=== PATIENT | female | born 1960 | race Asian ===

== ENCOUNTER → 2018-07-07 | Outpatient (CLI) | payer MEDICARE ==
[~2018-07-07] MED LIST: ASPI81 PO; DIVA500T52 PO; DSS100 PO; INSNOV SQ; METF-960 PO; MV-M1TAB2 PO; OLAN5TAB40 PO; PIOG15TA6 PO; SIMV-260 PO; SITA100 PO; TRIH2TAB3 PO; VITAD1000 PO
[2018-07-18 08:46] LABS: CHOL/HDL RATIO 5.1 (3.9-5.7); HEMOGLOBIN A1C 9.3 % (4.5-6.2)
== END | disposition home or self-care (01) ==
LOC: LABMN 15:00
PROVIDERS: ATTEND Psychiatry & Neurology Psychiatry
DX: F31.5 Bipolar disorder, current episode depressed, severe, with psychotic features (principal); E11.9 Type 2 diabetes mellitus without complications; Z79.899 Other long term (current) drug therapy
CPT/HCPCS: 82947; 83036

== ENCOUNTER → 2018-11-07 | Outpatient (CLI) | payer MEDICARE | END | disposition home or self-care (01) | LOC: LABMN 14:25 | PROVIDERS: ATTEND Psychiatry & Neurology Psychiatry | DX: F31.32 Bipolar disorder, current episode depressed, moderate (principal) ==

== ENCOUNTER → 2020-08-12 | Outpatient (CLI) | payer MEDICARE, SELFPAY ==
[~2020-08-12] MED LIST changes: +ASPI-1450 PO; -ASPI81 PO; +CHOL100018 PO; +DIVA-80 PO; -DIVA500T52 PO; -OLAN5TAB40 PO; +OLAN5TAB94 PO; -VITAD1000 PO
[2020-08-12 16:19] LABS: HEMOGLOBIN A1C 12.6 % (3.8-5.6)
[2020-08-12 16:28] LABS: CHOL/HDL RATIO 2.7 (3.9-5.7)
== END | disposition home or self-care (01) ==
LOC: LABMN 13:34
PROVIDERS: ATTEND Psychiatry & Neurology Psychiatry
DX: F31.2 Bipolar disorder, current episode manic severe with psychotic features (principal); E11.9 Type 2 diabetes mellitus without complications
CPT/HCPCS: 80061; 82947; 83036

== ENCOUNTER 2021-05-24 07:04 | Inpatient (IN) | payer MEDICARE, SELFPAY ==
[~2021-05-24] VITALS: Ht 162.6 cm; Wt 73.4 kg
[~2021-05-24 07:04] MED LIST changes: +METF-1211 PO; -METF-960 PO
[2021-05-24 07:51] LABS: BASOPHILS % (AUTO) 0.2 % (0.0-2.0); EOSINOPHILS % (AUTO) 0 % (1.0-6.0); HEMATOCRIT 35.7 % (36-46); HEMOGLOBIN 12.1 g/dL (12.0-16.0); LYMPHOCYTES # (AUTO) 1.1 K/uL (1.0-4.8); LYMPHOCYTES % (AUTO) 8.7 % (22.0-44.0); MEAN CORPUSCULAR HEMOGLOBIN 27.3 pg (26.0-34.0); MEAN CORPUSCULAR HGB CONC 33.7 G/dL (31.0-37.0); MEAN CORPUSCULAR VOLUME 81 fL (80-100); MONOCYTES # (AUTO) 0.7 K/uL (0.1-1.0); MONOCYTES % (AUTO) 5.1 % (2.0-9.0); NEUTROPHILS # (AUTO) 11.2 K/uL (1.8-7.7); PLATELET COUNT (AUTO) 346 K/uL (150-450); RED BLOOD CELL COUNT(AUTO) 4.41 MIL/uL (4.00-5.20); RED CELL DISTRIBUTION WIDTH 12.5 % (11.5-14.5)
[2021-05-24] MEDS ORDERED: ACETAMINOPHEN 1000 MG/ISO-OSM 100 ML IV ONE (08:00)
[2021-05-24] MEDS ORDERED: SODIUM CHLORIDE 0.9% 2,200 ML IV ONE (08:00)
[2021-05-24 08:03] LABS: INR 1.1 (0.9-1.1); PROTHROMBIN TIME 11.6 SEC (9.4-11.6)
[2021-05-24 08:08] LABS: CALCIUM, TOTAL 9.3 mg/dL (8.8-10.5); CREATININE 1.02 mg/dL (0.60-1.30); POTASSIUM 3.7 mmol/L (3.5-5.1)
[2021-05-24 08:09] LABS: ALBUMIN 3.4 g/dL (3.4-5.0); BILIRUBIN,TOTAL 0.9 mg/dL (0.1-1.0)
[2021-05-24 08:16] LABS: B-TYPE NATRIURETIC PEPTIDE 86 pg/mL (0-100)
[2021-05-24 08:19] LABS: LACTIC ACID 2.3 mmol/L (0.4-2.0)
[2021-05-24] MEDS ORDERED: AZITHROMYCIN 500 MG/NS 250 ML IV ONE (08:30)
[2021-05-24] MEDS ORDERED: CefTRIAXone 1 GM/DEXTROSE 50 ML IV ONE (08:30)
[2021-05-24 09:00] LABS: COVID AG,FIA SOURCE NASAL SWAB
[2021-05-24 09:12] LABS: AMPHET/METH SCREEN,URINE NEGATIVE (NEGATIVE); BARBITURATE SCREEN, URINE NEGATIVE (NEGATIVE); BENZODIAZEPINES SCREEN,URINE NEGATIVE (NEGATIVE); CANNABINOID SCREEN,URINE NEGATIVE (NEGATIVE); COCAINE SCREEN,URINE NEGATIVE (NEGATIVE); METHADONE SCREEN, URINE NEGATIVE (NEGATIVE); OPIATE SCREEN,URINE NEGATIVE (NEGATIVE)
[2021-05-24] MEDS ORDERED: IOHEXOL 350 MG/ML 150 ML VIAL ONE (09:16)
[2021-05-24] MEDS ORDERED: SODIUM CHLORIDE 0.9% 100 ML ONE (09:17)
[2021-05-24 09:23] LABS: APPEARANCE,URINE HAZY (CLEAR); BILIRUBIN,URINE NEGATIVE (NEGATIVE); GLUCOSE, URINE (UA) NEGATIVE (NEGATIVE); KETONES,URINE NEGATIVE (NEGATIVE); LEUKOCYTE ESTERASE ,URINE LARGE (NEGATIVE); NITRATE,URINE NEGATIVE (NEGATIVE); OCCULT BLOOD,URINE TRACE (NEGATIVE); PH,URINE 6.5 (5.0-8.0); PROTEIN,URINE 30-70 mg/dL (NEGATIVE); SPECIFIC GRAVITIY, URINE 1.028 (1.003-1.030); UROBILINOGEN,URINE <=1.0 mg/dL (<=1.0)
[2021-05-24 09:25] LABS: PHENCYCLIDINE SCREEN,URINE NEGATIVE (NEGATIVE)
[2021-05-24 09:34] LABS: BACTERIA,URINE Many /HPF (None Seen); RBC,URINE 0-2 /HPF (0-2); WBC,URINE 51-100 /HPF (0-5)
[2021-05-24 09:39] LABS: INFLUENZA TYPE A NEGATIVE FOR TYPE A (NEGATIVE); INFLUENZA TYPE B NEGATIVE FOR TYPE B (NEGATIVE)
[2021-05-24] MEDS ORDERED: MAGNESIUM HYDROXIDE SUSPENSION 30 ML UDCUP PO PRN (10:15)
[2021-05-24] MEDS ORDERED: BISACODYL 10 MG RECTAL RECTAL SUPPOSITORY PR PRN (10:15)
[2021-05-24] MEDS ORDERED: ONDANSETRON HCL 4 MG/2 ML VIAL IVP PRN (10:15)
[2021-05-24] MEDS ORDERED: DEXTROSE 50%-WATER 25 GM/50 ML SYRINGE IVP PRN (10:15)
[2021-05-24] MEDS ORDERED: ZOLPIDEM TARTRATE 5 MG TABLET PO PRN (10:15)
[2021-05-24] MEDS ORDERED: HYDROCODONE/ACETAMINOPHEN 5-325 MG TABLET PO PRN (10:15)
[2021-05-24] MEDS ORDERED: *CLINICAL-LEVOFLOXACIN IVPB DOSING CLINICAL ONE (10:15)
[2021-05-24] MEDS ORDERED: MORPHINE SULFATE 2 MG/ML SYRINGE IVP PRN (10:15)
[2021-05-24 12:00] VITALS: BP 104/71
[2021-05-24] MEDS ORDERED: SODIUM CHLORIDE 0.9% 1,000 ML IV ONE (12:30)
[2021-05-24] MEDS: INSULIN LISPRO 100 UNITS/ML SQ PRN ×3 (12:57→21:01)
[2021-05-24 15:51] LABS: GLUCOMETER DEV NAME(LOC) 5S.2B; GLUCOSE,POINT OF CARE 201 MG/DL (70-110)
[2021-05-24 16:05] VITALS: BP 154/74
[2021-05-24] MEDS: ACETAMINOPHEN 325 MG TABLET PO PRN ×2 (16:11→21:00)
[2021-05-24] MEDS: HEPARIN SODIUM,PORCINE 5,000 UNITS/ML VIAL SQ SCH ×2 (16:11→23:21)
[2021-05-24 18:46] LABS: GLUCOMETER DEV NAME(LOC) 5S.2B; GLUCOSE,POINT OF CARE 247 MG/DL (70-110)
[2021-05-24 20:25] VITALS: BP 119/71
[2021-05-24] MEDS: DOCUSATE SODIUM 100 MG CAPSULE PO SCH (20:59)
[2021-05-25 00:15] VITALS: BP 144/75
[2021-05-25] MEDS: ACETAMINOPHEN 325 MG TABLET PO PRN ×2 (01:58→12:25)
[2021-05-25] MEDS: LEVOFLOXACIN 750 MG/D5% WATER 150 ML IV SCH (04:59)
[2021-05-25 05:16] LABS: GLUCOMETER DEV NAME(LOC) 5S.1B; GLUCOSE,POINT OF CARE 220 MG/DL (70-110)
[2021-05-25] MEDS: INSULIN LISPRO 100 UNITS/ML SQ PRN ×4 (05:44→20:23)
[2021-05-25 06:54] LABS: ANION GAP 8 mmol/L (8-16); CALCIUM, TOTAL 8.5 mg/dL (8.8-10.5); CARBON DIOXIDE 29 mmol/L (22-29); CHLORIDE 100 mmol/L (98-107); CREATININE 0.89 mg/dL (0.60-1.30); GLOMERULAR FILTR. RATE CALC > 60 mL/min (>60); GLUCOSE,RANDOM 190 mg/dL (70-110); POTASSIUM 3.8 mmol/L (3.5-5.1); SODIUM SERUM 137 mmol/L (136-145); UREA NITROGEN, BLOOD 8 mg/dL (7-18)
[2021-05-25 07:23] LABS: BASOPHILS % (AUTO) 0.2 % (0.0-2.0); EOSINOPHILS % (AUTO) 0 % (1.0-6.0); HEMATOCRIT 31.9 % (36-46); HEMOGLOBIN 10.9 g/dL (12.0-16.0); LYMPHOCYTES # (AUTO) 1.2 K/uL (1.0-4.8); LYMPHOCYTES % (AUTO) 11.8 % (22.0-44.0); MEAN CORPUSCULAR HEMOGLOBIN 27.7 pg (26.0-34.0); MEAN CORPUSCULAR HGB CONC 34.1 G/dL (31.0-37.0); MEAN CORPUSCULAR VOLUME 81 fL (80-100); MONOCYTES # (AUTO) 0.5 K/uL (0.1-1.0); MONOCYTES % (AUTO) 5.4 % (2.0-9.0); NEUTROPHILS # (AUTO) 8.3 K/uL (1.8-7.7); NEUTROPHILS % (AUTO) 82.6 % (40.0-70.0); PLATELET COUNT (AUTO) 261 K/uL (150-450); RED BLOOD CELL COUNT(AUTO) 3.92 MIL/uL (4.00-5.20); RED CELL DISTRIBUTION WIDTH 12.4 % (11.5-14.5)
[2021-05-25 08:56] LABS: GLUCOMETER DEV NAME(LOC) 5S.1B; GLUCOSE,POINT OF CARE 169 MG/DL (70-110)
[2021-05-25] MEDS: PANTOPRAZOLE SODIUM 40 MG DR TABLET PO SCH (09:35)
[2021-05-25] MEDS: CHOLECALCIFEROL (VIT D3) 1,000 UNITS [25 MCG] TABLET PO SCH (09:35)
[2021-05-25] MEDS: SIMVASTATIN 20 MG TABLET PO SCH (09:35)
[2021-05-25] MEDS: DIVALPROEX SODIUM 500 MG ER TABLET PO SCH (09:35)
[2021-05-25] MEDS: ASPIRIN 81 MG CHEWABLE TABLET PO SCH (09:35)
[2021-05-25] MEDS: DOCUSATE SODIUM 100 MG CAPSULE PO SCH ×2 (09:36→20:21)
[2021-05-25] MEDS: HEPARIN SODIUM,PORCINE 5,000 UNITS/ML VIAL SQ SCH ×2 (09:36→16:29)
[2021-05-25 09:53] VITALS: BP 142/78
[2021-05-25 13:30] VITALS: BP 119/76
[2021-05-25] MEDS: CefTRIAXone 1 GM/DEXTROSE 50 ML IV SCH (16:29)
[2021-05-25 16:50] VITALS: BP 102/67
[2021-05-25 18:01] LABS: GLUCOMETER DEV NAME(LOC) 5S.2B; GLUCOSE,POINT OF CARE 174 MG/DL (70-110)
[2021-05-25 18:01] LABS: GLUCOMETER DEV NAME(LOC) 5S.2B; GLUCOSE,POINT OF CARE 141 MG/DL (70-110)
[2021-05-25 20:00] VITALS: BP 120/69
[2021-05-25 23:36] LABS: GLUCOMETER DEV NAME(LOC) 5S.2B; GLUCOSE,POINT OF CARE 183 MG/DL (70-110)
[2021-05-26] VITALS (7 sets, daily range): BP systolic 128–151; BP diastolic 71–88
[2021-05-26] MEDS: HEPARIN SODIUM,PORCINE 5,000 UNITS/ML VIAL SQ SCH ×3 (00:02→16:00)
[2021-05-26] MEDS: ACETAMINOPHEN 325 MG TABLET PO PRN ×2 (00:09→20:28)
[2021-05-26 05:27] LABS: BASOPHILS % (AUTO) 0.2 % (0.0-2.0); EOSINOPHILS % (AUTO) 0.2 % (1.0-6.0); HEMATOCRIT 29.9 % (36-46); HEMOGLOBIN 10.3 g/dL (12.0-16.0); LYMPHOCYTES # (AUTO) 1.7 K/uL (1.0-4.8); LYMPHOCYTES % (AUTO) 26.4 % (22.0-44.0); MEAN CORPUSCULAR HEMOGLOBIN 27.6 pg (26.0-34.0); MEAN CORPUSCULAR HGB CONC 34.5 G/dL (31.0-37.0); MEAN CORPUSCULAR VOLUME 80 fL (80-100); MONOCYTES # (AUTO) 0.5 K/uL (0.1-1.0); MONOCYTES % (AUTO) 7.4 % (2.0-9.0); NEUTROPHILS # (AUTO) 4.2 K/uL (1.8-7.7); NEUTROPHILS % (AUTO) 65.8 % (40.0-70.0); PLATELET COUNT (AUTO) 245 K/uL (150-450); RED BLOOD CELL COUNT(AUTO) 3.74 MIL/uL (4.00-5.20); RED CELL DISTRIBUTION WIDTH 12.4 % (11.5-14.5)
[2021-05-26 05:33] LABS: ANION GAP 7 mmol/L (8-16); CALCIUM, TOTAL 8.4 mg/dL (8.8-10.5); CARBON DIOXIDE 31 mmol/L (22-29); CHLORIDE 102 mmol/L (98-107); CREATININE 0.84 mg/dL (0.60-1.30); GLOMERULAR FILTR. RATE CALC > 60 mL/min (>60); GLUCOSE,RANDOM 180 mg/dL (70-110); POTASSIUM 3.5 mmol/L (3.5-5.1); SODIUM SERUM 140 mmol/L (136-145); UREA NITROGEN, BLOOD 10 mg/dL (7-18)
[2021-05-26] MEDS: LEVOFLOXACIN 750 MG/D5% WATER 150 ML IV SCH (06:18)
[2021-05-26] MEDS: INSULIN LISPRO 100 UNITS/ML SQ PRN ×2 (06:22→20:30)
[2021-05-26] MEDS ORDERED: GADOTERATE MEGLUMINE 10 MMOL/20 ML VIAL IVP ONE (08:12)
[2021-05-26] MEDS: DOCUSATE SODIUM 100 MG CAPSULE PO SCH ×2 (09:53→20:29)
[2021-05-26] MEDS: ASPIRIN 81 MG CHEWABLE TABLET PO SCH (09:53)
[2021-05-26] MEDS: DIVALPROEX SODIUM 500 MG ER TABLET PO SCH (09:53)
[2021-05-26] MEDS: PANTOPRAZOLE SODIUM 40 MG DR TABLET PO SCH (09:53)
[2021-05-26] MEDS: CHOLECALCIFEROL (VIT D3) 1,000 UNITS [25 MCG] TABLET PO SCH (09:54)
[2021-05-26] MEDS: SIMVASTATIN 20 MG TABLET PO SCH (09:54)
[2021-05-26] MEDS ORDERED: SODIUM CHLORIDE 0.9% 100 ML ONE (12:15)
[2021-05-26] MEDS ORDERED: IOHEXOL 350 MG/ML 100 ML VIAL ONE (12:15)
[2021-05-26] MEDS: CefTRIAXone 1 GM/DEXTROSE 50 ML IV SCH (13:53)
[2021-05-26 14:51] LABS: GLUCOMETER DEV NAME(LOC) 5S.1B; GLUCOSE,POINT OF CARE 206 MG/DL (70-110)
[2021-05-26 18:01] LABS: GLUCOMETER DEV NAME(LOC) 5S.1B; GLUCOSE,POINT OF CARE 202 MG/DL (70-110)
[2021-05-27 00:06] LABS: GLUCOMETER DEV NAME(LOC) 5S.1B; GLUCOSE,POINT OF CARE 160 MG/DL (70-110)
[2021-05-27] MEDS: HEPARIN SODIUM,PORCINE 5,000 UNITS/ML VIAL SQ SCH ×3 (01:00→17:12)
[2021-05-27 04:53] VITALS: BP 121/71
[2021-05-27] MEDS: LEVOFLOXACIN 750 MG/D5% WATER 150 ML IV SCH (05:16)
[2021-05-27 06:26] LABS: BASOPHILS % (AUTO) 0.2 % (0.0-2.0); EOSINOPHILS % (AUTO) 1.4 % (1.0-6.0); HEMATOCRIT 30.7 % (36-46); HEMOGLOBIN 10.5 g/dL (12.0-16.0); LYMPHOCYTES # (AUTO) 2.1 K/uL (1.0-4.8); LYMPHOCYTES % (AUTO) 33.6 % (22.0-44.0); MEAN CORPUSCULAR HEMOGLOBIN 27.6 pg (26.0-34.0); MEAN CORPUSCULAR HGB CONC 34.3 G/dL (31.0-37.0); MEAN CORPUSCULAR VOLUME 80 fL (80-100); MONOCYTES # (AUTO) 0.5 K/uL (0.1-1.0); MONOCYTES % (AUTO) 8.8 % (2.0-9.0); NEUTROPHILS # (AUTO) 3.5 K/uL (1.8-7.7); PLATELET COUNT (AUTO) 275 K/uL (150-450); RED BLOOD CELL COUNT(AUTO) 3.82 MIL/uL (4.00-5.20); RED CELL DISTRIBUTION WIDTH 12.7 % (11.5-14.5)
[2021-05-27 06:40] LABS: ANION GAP 7 mmol/L (8-16); CALCIUM, TOTAL 9.2 mg/dL (8.8-10.5); CARBON DIOXIDE 29 mmol/L (22-29); CHLORIDE 105 mmol/L (98-107); CREATININE 0.83 mg/dL (0.60-1.30); GLOMERULAR FILTR. RATE CALC > 60 mL/min (>60); GLUCOSE,RANDOM 191 mg/dL (70-110); SODIUM SERUM 141 mmol/L (136-145); UREA NITROGEN, BLOOD 13 mg/dL (7-18)
[2021-05-27] MEDS: INSULIN LISPRO 100 UNITS/ML SQ PRN ×2 (06:45→21:21)
[2021-05-27 06:51] LABS: GLUCOMETER DEV NAME(LOC) 5S.1B; GLUCOSE,POINT OF CARE 211 MG/DL (70-110)
[2021-05-27 07:54] VITALS: BP 141/75
[2021-05-27] MEDS: SIMVASTATIN 20 MG TABLET PO SCH (08:29)
[2021-05-27] MEDS: ASPIRIN 81 MG CHEWABLE TABLET PO SCH (08:29)
[2021-05-27] MEDS: DOCUSATE SODIUM 100 MG CAPSULE PO SCH ×2 (08:29→21:00)
[2021-05-27] MEDS: CHOLECALCIFEROL (VIT D3) 1,000 UNITS [25 MCG] TABLET PO SCH (08:29)
[2021-05-27] MEDS: PANTOPRAZOLE SODIUM 40 MG DR TABLET PO SCH (08:30)
[2021-05-27] MEDS: DIVALPROEX SODIUM 500 MG ER TABLET PO SCH (08:30)
[2021-05-27 11:07] VITALS: BP 140/78
[2021-05-27] MEDS: CefTRIAXone 1 GM/DEXTROSE 50 ML IV SCH (15:17)
[2021-05-27] MEDS ORDERED: SODIUM CHLORIDE 0.9% 1,000 ML ONE (15:22)
[2021-05-27 15:58] VITALS: BP 138/79
[2021-05-27 17:41] LABS: GLUCOMETER DEV NAME(LOC) 5S.1B; GLUCOSE,POINT OF CARE 152 MG/DL (70-110)
[2021-05-27 17:41] LABS: GLUCOMETER DEV NAME(LOC) 5S.1B; GLUCOSE,POINT OF CARE 317 MG/DL (70-110)
[2021-05-27 21:06] LABS: GLUCOMETER DEV NAME(LOC) 5S.1B; GLUCOSE,POINT OF CARE 237 MG/DL (70-110)
[2021-05-27 21:13] VITALS: BP 144/79
[2021-05-28] MEDS: HEPARIN SODIUM,PORCINE 5,000 UNITS/ML VIAL SQ SCH ×2 (01:06→08:54)
[2021-05-28 01:49] VITALS: BP 129/80
[2021-05-28 05:12] VITALS: BP 129/79
[2021-05-28] MEDS: LEVOFLOXACIN 750 MG/D5% WATER 150 ML IV SCH (06:35)
[2021-05-28] MEDS: INSULIN LISPRO 100 UNITS/ML SQ PRN ×2 (06:39→12:16)
[2021-05-28 06:56] LABS: GLUCOMETER DEV NAME(LOC) 5S.1B; GLUCOSE,POINT OF CARE 256 MG/DL (70-110)
[2021-05-28] MEDS: DIVALPROEX SODIUM 500 MG ER TABLET PO SCH (08:53)
[2021-05-28] MEDS: ASPIRIN 81 MG CHEWABLE TABLET PO SCH (08:53)
[2021-05-28] MEDS: PANTOPRAZOLE SODIUM 40 MG DR TABLET PO SCH (08:54)
[2021-05-28] MEDS: DOCUSATE SODIUM 100 MG CAPSULE PO SCH (08:54)
[2021-05-28] MEDS: CHOLECALCIFEROL (VIT D3) 1,000 UNITS [25 MCG] TABLET PO SCH (08:54)
[2021-05-28] MEDS: SIMVASTATIN 20 MG TABLET PO SCH (08:54)
[2021-05-28] MEDS: CefTRIAXone 1 GM/DEXTROSE 50 ML IV SCH (11:56)
[2021-05-28 12:31] LABS: GLUCOMETER DEV NAME(LOC) 5S.1B; GLUCOSE,POINT OF CARE 264 MG/DL (70-110)
[2021-05-28] MEDS ORDERED: LEVO-72 PO (13:59)
[2021-05-28 16:12] VITALS: BP 153/85
== END 2021-05-28 16:00 | disposition home or self-care (01) | DRG 871 ==
LOC: EMS 07:06 → 5N 10:22
PROVIDERS: ADMIT Internal Medicine; ATTEND Internal Medicine
DX: A41.50 Gram-negative sepsis, unspecified (principal); G92.9 Unspecified toxic encephalopathy; R65.21 Severe sepsis with septic shock; J18.9 Pneumonia, unspecified organism; N39.0 Urinary tract infection, site not specified; E87.1 Hypo-osmolality and hyponatremia; I69.351 Hemiplegia and hemiparesis following cerebral infarction affecting right dominant side; E78.5 Hyperlipidemia, unspecified; E11.65 Type 2 diabetes mellitus with hyperglycemia; Z20.822 Contact with and (suspected) exposure to COVID-19; F25.9 Schizoaffective disorder, unspecified; F31.9 Bipolar disorder, unspecified; F99 Mental disorder, not otherwise specified; Z98.51 Tubal ligation status; I69.392 Facial weakness following cerebral infarction
CPT/HCPCS: 51702; 70496; 70498; 70553; 71045; 71260; 72193; 74160; 80048; 80053; 80164; 81001; 82962; 83605; 83880; 84145; 84484; 85025; 85610; 85730; 86850; 86900; 86901; 87040; 87077; 87086; 87205; 87804; 92610; 93005; 93306; 99291; J0131; J0456; J0696; J1644; J1956; J7030; J7050; Q9967; 36415-L1; 36415-TC; 70450; 70450-TC; U0003

== ENCOUNTER → 2021-12-15 | Outpatient (CLI) | payer MEDICARE ==
[~2021-12-15] MED LIST changes: +LEVO-72 PO; -PIOG15TA6 PO; -TRIH2TAB3 PO
== END | disposition home or self-care (01) ==
LOC: LABMN 08:56
PROVIDERS: ATTEND Psychiatry & Neurology Psychiatry
DX: F31.2 Bipolar disorder, current episode manic severe with psychotic features (principal)
CPT/HCPCS: 80164

== ENCOUNTER 2022-06-11 00:34 | Inpatient (IN) | payer MEDICARE, SELFPAY ==
[~2022-06-11] VITALS: Ht 162.6 cm; Wt 73.9 kg
[~2022-06-11 00:34] MED LIST changes: -DIVA-80 PO; +DIVA500T53 PO
[2022-06-11] MEDS ORDERED: PIOG30TA10 PO (01:02)
[2022-06-11] MEDS ORDERED: [UNRECOGNIZED DRUG - CODE] PO (01:03)
[2022-06-11] MEDS ORDERED: LOSA-381 PO (01:04)
[2022-06-11] MEDS ORDERED: ROSU20TA73 PO (01:04)
[2022-06-11 01:14] LABS: BASOPHILS % (AUTO) 0.4 % (0.0-2.0); EOSINOPHILS % (AUTO) 1.1 % (1.0-6.0); HEMATOCRIT 42.4 % (36-46); HEMOGLOBIN 13.9 g/dL (12.0-16.0); LYMPHOCYTES # (AUTO) 2.5 K/uL (1.0-4.8); LYMPHOCYTES % (AUTO) 24.3 % (22.0-44.0); MEAN CORPUSCULAR HEMOGLOBIN 28.2 pg (26.0-34.0); MEAN CORPUSCULAR HGB CONC 32.8 G/dL (31.0-37.0); MEAN CORPUSCULAR VOLUME 86 fL (80-100); MONOCYTES # (AUTO) 0.6 K/uL (0.1-1.0); MONOCYTES % (AUTO) 5.7 % (2.0-9.0); NEUTROPHILS % (AUTO) 68.5 % (40.0-70.0); PLATELET COUNT (AUTO) 338 K/uL (150-450); RED BLOOD CELL COUNT(AUTO) 4.93 MIL/uL (4.00-5.20); RED CELL DISTRIBUTION WIDTH 12.8 % (11.5-14.5)
[2022-06-11 01:29] LABS: ALANINE AMINOTRANSFERASE 19 U/L (12-78); ALKALINE PHOSPHATASE 88 U/L (46-116); ANION GAP 10 mmol/L (8-16); ASPARTATE AMINOTRANSFERASE 16 U/L (15-37); BILIRUBIN,TOTAL 0.4 mg/dL (0.1-1.0); CALCIUM, TOTAL 10.3 mg/dL (8.8-10.5); CARBON DIOXIDE 27 mmol/L (22-29); CHLORIDE 94 mmol/L (98-107); CREATININE 1.38 mg/dL (0.60-1.30); GLOMERULAR FILTR. RATE CALC 39 mL/min (>60); POTASSIUM 5.6 mmol/L (3.5-5.1); SODIUM SERUM 131 mmol/L (136-145); TOTAL PROTEIN, SERUM 8.5 g/dL (6.4-8.2); UREA NITROGEN, BLOOD 29 mg/dL (7-18)
[2022-06-11 01:41] LABS: GLUCOSE,RANDOM 555 mg/dL (70-110)
[2022-06-11] MEDS ORDERED: OLANZapine 5 MG TABLET PO ONE (02:15)
[2022-06-11 02:22] LABS: APPEARANCE,URINE CLEAR (CLEAR); BILIRUBIN,URINE NEGATIVE (NEGATIVE); GLUCOSE, URINE (UA) >=1000 mg/dL (NEGATIVE); KETONES,URINE NEGATIVE (NEGATIVE); LEUKOCYTE ESTERASE ,URINE NEGATIVE (NEGATIVE); NITRATE,URINE NEGATIVE (NEGATIVE); OCCULT BLOOD,URINE NEGATIVE (NEGATIVE); PROTEIN,URINE TRACE mg/dL (NEGATIVE); SPECIFIC GRAVITIY, URINE 1.026 (1.003-1.030); UROBILINOGEN,URINE <=1.0 mg/dL (<=1.0)
[2022-06-11 02:29] LABS: AMPHET/METH SCREEN,URINE NEGATIVE (NEGATIVE); BACTERIA,URINE None Seen /HPF (None Seen); BARBITURATE SCREEN, URINE NEGATIVE (NEGATIVE); BENZODIAZEPINES SCREEN,URINE NEGATIVE (NEGATIVE); CANNABINOID SCREEN,URINE NEGATIVE (NEGATIVE); COCAINE SCREEN,URINE NEGATIVE (NEGATIVE); METHADONE SCREEN, URINE NEGATIVE (NEGATIVE); OPIATE SCREEN,URINE NEGATIVE (NEGATIVE); PHENCYCLIDINE SCREEN,URINE NEGATIVE (NEGATIVE); RBC,URINE 0-2 /HPF (0-2); SQUAMOUS EPITHELIAL CELL,UR Rare /LPF (None Seen); WBC,URINE None Seen /HPF (0-5)
[2022-06-11 02:42] LABS: VALPROIC ACID < 3 mcg/mL (50-100)
[2022-06-11] MEDS ORDERED: ZOLPIDEM TARTRATE 10 MG TABLET PO PRN (02:45)
[2022-06-11] MEDS ORDERED: OLANZapine 5 MG RAPDIS TABLET PO PRN (02:45)
[2022-06-11] MEDS ORDERED: LORazepam 2 MG TABLET PO PRN (02:45)
[2022-06-11] MEDS ORDERED: INSULIN REGULAR, HUMAN 100 UNITS/ML SQ ONE (03:00)
[2022-06-11 03:04] LABS: COVID AG,FIA SOURCE NASAL SWAB
[2022-06-11 05:26] LABS: GLUCOSE,POINT OF CARE 358 MG/DL (70-110)
[2022-06-11] MEDS ORDERED: HydrOXYzine PAMOATE 50 MG CAPSULE PO PRN (10:00)
[2022-06-11] MEDS ORDERED: GuaiFENesin/D-METHORPHAN [SUGAR-FREE] 200-20MG/10 ML SYRUP UDCUP PO PRN (10:00)
[2022-06-11] MEDS ORDERED: LOPERAMIDE HCL 2 MG CAPSULE PO PRN (10:00)
[2022-06-11] MEDS ORDERED: PROMETHAZINE HCL 25 MG TABLET PO PRN (10:00)
[2022-06-11] MEDS ORDERED: MAG HYDROX/AL HYDROX/SIMETH ES 30 ML SUSPENSION UDCUP PO PRN (10:00)
[2022-06-11] MEDS ORDERED: ACETAMINOPHEN 325 MG TABLET PO PRN (10:00)
[2022-06-11] MEDS ORDERED: MAGNESIUM HYDROXIDE SUSPENSION 30 ML UDCUP PO PRN (10:00)
[2022-06-11] MEDS ORDERED: TUBERCULIN, PURIFIED PROTEIN DERIVATIVE 5 TU/0.1 ML SYRINGE ID ONE (10:00)
[2022-06-11] MEDS ORDERED: DEXTROSE 50%-WATER 25 GM/50 ML SYRINGE IVP PRN (10:30)
[2022-06-11] MEDS ORDERED: INSULIN LISPRO 100 UNITS/ML SQ PRN (10:30)
[2022-06-11 10:40] LABS: GLUCOMETER DEV NAME(LOC) BV2X.2; GLUCOSE,POINT OF CARE 306 MG/DL (70-110)
[2022-06-11] MEDS ORDERED: INSULIN LISPRO 100 UNITS/ML SQ ONE ×2 (11:15→21:45)
[2022-06-11 11:16] LABS: GLUCOMETER DEV NAME(LOC) BV2X.2; GLUCOSE,POINT OF CARE 459 MG/DL (70-110)
[2022-06-11] MEDS ORDERED: GLUCAGON,HUMAN RECOMBINANT 1 MG VIAL IM PRN (12:00)
[2022-06-11 14:16] LABS: GLUCOMETER DEV NAME(LOC) BV2X.2; GLUCOSE,POINT OF CARE 463 MG/DL (70-110)
[2022-06-11 14:16] LABS: GLUCOMETER DEV NAME(LOC) BV2X.2; GLUCOSE,POINT OF CARE 371 MG/DL (70-110)
[2022-06-11] MEDS ORDERED: PALIPERIDONE PALMITATE 234 MG/1.5 ML SYRINGE IM ONE (16:00)
[2022-06-11] MEDS: MetFORMIN HCL 500 MG TABLET PO SCH (16:39)
[2022-06-11] MEDS: TRIHEXYPHENIDYL HCL 2 MG TABLET PO SCH (16:40)
[2022-06-11] MEDS: THIAMINE 100 MG TABLET PO SCH (16:40)
[2022-06-11 16:51] LABS: GLUCOMETER DEV NAME(LOC) BV2X.2; GLUCOSE,POINT OF CARE 344 MG/DL (70-110)
[2022-06-11] MEDS: INSULIN LISPRO 100 UNITS/ML SQ PRN ×2 (16:52→20:16)
[2022-06-11] MEDS ORDERED: MetFORMIN HCL 500 MG TABLET PO SCH (17:00)
[2022-06-11 20:06] VITALS: BP 127/75
[2022-06-11] MEDS: MELATONIN 5 MG TABLET PO SCH (20:11)
[2022-06-11] MEDS: DIVALPROEX SODIUM 500 MG ER TABLET PO SCH (20:11)
[2022-06-11] MEDS: OLANZapine 10 MG RAPDIS TABLET PO SCH (20:12)
[2022-06-11 20:26] LABS: GLUCOMETER DEV NAME(LOC) BV2X.2; GLUCOSE,POINT OF CARE 376 MG/DL (70-110)
[2022-06-11] MEDS ORDERED: INSULIN GLARGINE,HUM.REC.ANLOG 100 UNITS/ML SQ SCH (21:00)
[2022-06-11 23:21] LABS: GLUCOMETER DEV NAME(LOC) BV2X.2; GLUCOSE,POINT OF CARE 408 MG/DL (70-110)
[2022-06-12 06:21] LABS: GLUCOMETER DEV NAME(LOC) BV2X.2; GLUCOSE,POINT OF CARE 287 MG/DL (70-110)
[2022-06-12] MEDS: MetFORMIN HCL 500 MG TABLET PO SCH ×2 (06:40→16:14)
[2022-06-12] MEDS: INSULIN LISPRO 100 UNITS/ML SQ PRN ×3 (06:44→20:46)
[2022-06-12 07:41] LABS: HEMOGLOBIN A1C 12.4 % (3.8-5.6)
[2022-06-12 07:54] LABS: CHOL/HDL RATIO 4.3 (3.9-5.7); FREE T4 (FREE THYROXINE) 1.56 ng/dL (0.76-1.46); THYROID STIMULATING HORMONE 2.06 uIU/mL (0.36-3.74)
[2022-06-12 08:17] VITALS: BP 114/61
[2022-06-12] MEDS: LOSARTAN POTASSIUM 25 MG TABLET PO SCH (08:44)
[2022-06-12] MEDS: ROSUVASTATIN CALCIUM 20 MG TABLET PO SCH (08:44)
[2022-06-12] MEDS: LinaGLIPtin 5 MG TABLET PO SCH (08:46)
[2022-06-12] MEDS: FOLIC ACID 1 MG TABLET PO SCH (08:47)
[2022-06-12] MEDS: MULTIVITAMINS WITH MINERALS, THERAPEUTIC TABLET PO SCH (08:47)
[2022-06-12] MEDS: THIAMINE 100 MG TABLET PO SCH ×2 (08:47→16:13)
[2022-06-12] MEDS: OLANZapine 5 MG RAPDIS TABLET PO SCH (08:47)
[2022-06-12] MEDS: DIVALPROEX SODIUM 500 MG ER TABLET PO SCH ×2 (08:47→20:17)
[2022-06-12] MEDS: TRIHEXYPHENIDYL HCL 2 MG TABLET PO SCH ×2 (08:47→16:14)
[2022-06-12] MEDS: CHOLECALCIFEROL (VIT D3) 1,000 UNITS [25 MCG] TABLET PO SCH (08:47)
[2022-06-12] MEDS: ASPIRIN 81 MG CHEWABLE TABLET PO SCH (08:48)
[2022-06-12] MEDS: OMEGA-3/DHA/EPA/FISH OIL 1,000 MG CAPSULE PO SCH (08:48)
[2022-06-12] MEDS ORDERED: PIOGLITAZONE HCL 45 MG TABLET PO SCH (09:00)
[2022-06-12] MEDS ORDERED: INSULIN LISPRO 100 UNITS/ML SQ ONE (11:15)
[2022-06-12 11:25] LABS: GLUCOMETER DEV NAME(LOC) BV2X.2; GLUCOSE,POINT OF CARE 421 MG/DL (70-110)
[2022-06-12] MEDS: PIOGLITAZONE HCL 30 MG TABLET PO SCH (12:54)
[2022-06-12 13:11] LABS: GLUCOMETER DEV NAME(LOC) BV2X.2; GLUCOSE,POINT OF CARE 367 MG/DL (70-110)
[2022-06-12 16:26] LABS: GLUCOMETER DEV NAME(LOC) BV2X.2; GLUCOSE,POINT OF CARE 273 MG/DL (70-110)
[2022-06-12] MEDS: OLANZapine 10 MG RAPDIS TABLET PO SCH (20:18)
[2022-06-12] MEDS: MELATONIN 5 MG TABLET PO SCH (20:18)
[2022-06-12] MEDS: INSULIN GLARGINE,HUM.REC.ANLOG 100 UNITS/ML SQ SCH (20:46)
[2022-06-12 20:51] LABS: GLUCOMETER DEV NAME(LOC) BV2X.2; GLUCOSE,POINT OF CARE 268 MG/DL (70-110)
[2022-06-12 23:18] VITALS: BP 124/88
[2022-06-13] MEDS ORDERED: INFLUENZA VIRUS VACCINE QVS 2022-23 (6MO+)/PF 60 MCG/0.5 ML SYRINGE IM. ONE (01:15)
[2022-06-13] MEDS ORDERED: PNEUMOCOCCAL VACCINE POLYVALENT 0.5 ML VIAL [PPSV23] IM. ONE (01:15)
[2022-06-13 06:25] LABS: GLUCOMETER DEV NAME(LOC) BV2X.2; GLUCOSE,POINT OF CARE 256 MG/DL (70-110)
[2022-06-13] MEDS: INSULIN LISPRO 100 UNITS/ML SQ PRN ×4 (06:39→20:35)
[2022-06-13] MEDS: MetFORMIN HCL 500 MG TABLET PO SCH ×2 (06:40→16:57)
[2022-06-13] MEDS: THIAMINE 100 MG TABLET PO SCH ×2 (08:14→17:14)
[2022-06-13] MEDS: TRIHEXYPHENIDYL HCL 2 MG TABLET PO SCH ×2 (08:14→16:57)
[2022-06-13] MEDS: OMEGA-3/DHA/EPA/FISH OIL 1,000 MG CAPSULE PO SCH (08:14)
[2022-06-13] MEDS: CHOLECALCIFEROL (VIT D3) 1,000 UNITS [25 MCG] TABLET PO SCH (08:14)
[2022-06-13 08:15] VITALS: BP 107/68
[2022-06-13] MEDS: DIVALPROEX SODIUM 500 MG ER TABLET PO SCH ×2 (08:15→20:06)
[2022-06-13] MEDS: LOSARTAN POTASSIUM 25 MG TABLET PO SCH (08:15)
[2022-06-13] MEDS: FOLIC ACID 1 MG TABLET PO SCH (08:16)
[2022-06-13] MEDS: LinaGLIPtin 5 MG TABLET PO SCH (08:16)
[2022-06-13] MEDS: ASPIRIN 81 MG CHEWABLE TABLET PO SCH (08:16)
[2022-06-13] MEDS: ROSUVASTATIN CALCIUM 20 MG TABLET PO SCH (08:16)
[2022-06-13] MEDS: OLANZapine 5 MG RAPDIS TABLET PO SCH (08:16)
[2022-06-13] MEDS: PIOGLITAZONE HCL 30 MG TABLET PO SCH (08:17)
[2022-06-13] MEDS: MULTIVITAMINS WITH MINERALS, THERAPEUTIC TABLET PO SCH (08:17)
[2022-06-13 11:16] LABS: GLUCOMETER DEV NAME(LOC) BV2X.2; GLUCOSE,POINT OF CARE 256 MG/DL (70-110)
[2022-06-13 17:11] LABS: GLUCOMETER DEV NAME(LOC) BV2X.2; GLUCOSE,POINT OF CARE 201 MG/DL (70-110)
[2022-06-13] MEDS: MELATONIN 5 MG TABLET PO SCH (20:06)
[2022-06-13] MEDS: OLANZapine 10 MG RAPDIS TABLET PO SCH (20:06)
[2022-06-13 20:27] VITALS: BP 106/64
[2022-06-13] MEDS: INSULIN GLARGINE,HUM.REC.ANLOG 100 UNITS/ML SQ SCH (20:35)
[2022-06-13 20:41] LABS: GLUCOMETER DEV NAME(LOC) BV2X.2; GLUCOSE,POINT OF CARE 316 MG/DL (70-110)
[2022-06-14] MEDS: MetFORMIN HCL 500 MG TABLET PO SCH ×2 (06:44→16:40)
[2022-06-14] MEDS: INSULIN LISPRO 100 UNITS/ML SQ PRN ×4 (06:45→21:07)
[2022-06-14 07:01] LABS: GLUCOMETER DEV NAME(LOC) BV2X.2; GLUCOSE,POINT OF CARE 179 MG/DL (70-110)
[2022-06-14] MEDS: MULTIVITAMINS WITH MINERALS, THERAPEUTIC TABLET PO SCH (08:14)
[2022-06-14] MEDS: LinaGLIPtin 5 MG TABLET PO SCH (08:14)
[2022-06-14] MEDS: OLANZapine 5 MG RAPDIS TABLET PO SCH (08:14)
[2022-06-14] MEDS: ROSUVASTATIN CALCIUM 20 MG TABLET PO SCH (08:14)
[2022-06-14] MEDS: LOSARTAN POTASSIUM 25 MG TABLET PO SCH (08:14)
[2022-06-14] MEDS: CHOLECALCIFEROL (VIT D3) 1,000 UNITS [25 MCG] TABLET PO SCH (08:14)
[2022-06-14] MEDS: PIOGLITAZONE HCL 30 MG TABLET PO SCH (08:14)
[2022-06-14] MEDS: ASPIRIN 81 MG CHEWABLE TABLET PO SCH (08:14)
[2022-06-14 08:15] VITALS: BP 122/66
[2022-06-14] MEDS: THIAMINE 100 MG TABLET PO SCH ×2 (08:15→16:40)
[2022-06-14] MEDS: TRIHEXYPHENIDYL HCL 2 MG TABLET PO SCH ×2 (08:15→16:40)
[2022-06-14] MEDS: OMEGA-3/DHA/EPA/FISH OIL 1,000 MG CAPSULE PO SCH (08:15)
[2022-06-14] MEDS: FOLIC ACID 1 MG TABLET PO SCH (08:15)
[2022-06-14] MEDS: DIVALPROEX SODIUM 500 MG ER TABLET PO SCH ×2 (08:22→20:43)
[2022-06-14 12:41] LABS: GLUCOMETER DEV NAME(LOC) BV2S.; GLUCOSE,POINT OF CARE 217 MG/DL (70-110)
[2022-06-14 16:56] LABS: GLUCOMETER DEV NAME(LOC) BV2X.2; GLUCOSE,POINT OF CARE 193 MG/DL (70-110)
[2022-06-14 20:00] VITALS: BP 124/72
[2022-06-14] MEDS: OLANZapine 10 MG RAPDIS TABLET PO SCH (20:43)
[2022-06-14] MEDS: MELATONIN 5 MG TABLET PO SCH (20:44)
[2022-06-14 20:51] LABS: GLUCOMETER DEV NAME(LOC) BV2X.2; GLUCOSE,POINT OF CARE 199 MG/DL (70-110)
[2022-06-14] MEDS: INSULIN GLARGINE,HUM.REC.ANLOG 100 UNITS/ML SQ SCH (21:09)
[2022-06-15] MEDS: MetFORMIN HCL 500 MG TABLET PO SCH ×2 (06:31→16:32)
[2022-06-15] MEDS: INSULIN LISPRO 100 UNITS/ML SQ PRN ×4 (06:34→20:46)
[2022-06-15 06:46] LABS: GLUCOMETER DEV NAME(LOC) BV2X.2; GLUCOSE,POINT OF CARE 126 MG/DL (70-110)
[2022-06-15 08:17] VITALS: BP 132/74
[2022-06-15] MEDS: TRIHEXYPHENIDYL HCL 2 MG TABLET PO SCH ×2 (08:24→16:32)
[2022-06-15] MEDS: MULTIVITAMINS WITH MINERALS, THERAPEUTIC TABLET PO SCH (08:24)
[2022-06-15] MEDS: OMEGA-3/DHA/EPA/FISH OIL 1,000 MG CAPSULE PO SCH (08:24)
[2022-06-15] MEDS: LinaGLIPtin 5 MG TABLET PO SCH (08:24)
[2022-06-15] MEDS: LOSARTAN POTASSIUM 25 MG TABLET PO SCH (08:24)
[2022-06-15] MEDS: DIVALPROEX SODIUM 500 MG ER TABLET PO SCH ×2 (08:24→20:25)
[2022-06-15] MEDS: ROSUVASTATIN CALCIUM 20 MG TABLET PO SCH (08:24)
[2022-06-15] MEDS: PIOGLITAZONE HCL 30 MG TABLET PO SCH (08:24)
[2022-06-15] MEDS: ASPIRIN 81 MG CHEWABLE TABLET PO SCH (08:24)
[2022-06-15] MEDS: FOLIC ACID 1 MG TABLET PO SCH (08:24)
[2022-06-15] MEDS: CHOLECALCIFEROL (VIT D3) 1,000 UNITS [25 MCG] TABLET PO SCH (08:25)
[2022-06-15] MEDS: THIAMINE 100 MG TABLET PO SCH ×2 (08:25→16:32)
[2022-06-15] MEDS: OLANZapine 5 MG RAPDIS TABLET PO SCH ×2 (08:25→20:26)
[2022-06-15] MEDS ORDERED: PALIPERIDONE PALMITATE 156 MG/ML SYRINGE IM ONE (09:00)
[2022-06-15 11:46] LABS: GLUCOMETER DEV NAME(LOC) BV2X.2; GLUCOSE,POINT OF CARE 153 MG/DL (70-110)
[2022-06-15] MEDS ORDERED: ICOS1CAP PO (15:25)
[2022-06-15] MEDS ORDERED: GLIM4TAB36 PO (15:25)
[2022-06-15] MEDS ORDERED: INSU100I3 SQ (15:25)
[2022-06-15] MEDS ORDERED: METF-445 PO (15:25)
[2022-06-15] MEDS ORDERED: SEMA1PEN3 SQ (15:25)
[2022-06-15] MEDS ORDERED: CHOL25TA4 PO (15:25)
[2022-06-15] MEDS ORDERED: DAPA10TA PO (15:25)
[2022-06-15] MEDS ORDERED: INSU100I22 SQ (15:25)
[2022-06-15] MEDS ORDERED: TRIH2TAB3 PO (15:25)
[2022-06-15 16:36] LABS: GLUCOMETER DEV NAME(LOC) BV2X.2; GLUCOSE,POINT OF CARE 169 MG/DL (70-110)
[2022-06-15] MEDS: MELATONIN 5 MG TABLET PO SCH (20:26)
[2022-06-15] MEDS: INSULIN GLARGINE,HUM.REC.ANLOG 100 UNITS/ML SQ SCH (20:47)
[2022-06-15 20:51] LABS: GLUCOMETER DEV NAME(LOC) BV2X.2; GLUCOSE,POINT OF CARE 202 MG/DL (70-110)
[2022-06-15 21:01] VITALS: BP 113/70
[2022-06-15 22:41] LABS: GLUCOMETER DEV NAME(LOC) POC.BV
[2022-06-16 06:31] LABS: GLUCOMETER DEV NAME(LOC) BV2X.2; GLUCOSE,POINT OF CARE 154 MG/DL (70-110)
[2022-06-16] MEDS: INSULIN LISPRO 100 UNITS/ML SQ PRN ×4 (06:35→20:28)
[2022-06-16] MEDS: MetFORMIN HCL 500 MG TABLET PO SCH ×2 (06:37→16:31)
[2022-06-16 08:14] LABS: ANION GAP 6 mmol/L (8-16); CALCIUM, TOTAL 9.9 mg/dL (8.8-10.5); CARBON DIOXIDE 27 mmol/L (22-29); CHLORIDE 105 mmol/L (98-107); CREATININE 0.91 mg/dL (0.60-1.30); GLOMERULAR FILTR. RATE CALC > 60 mL/min (>60); GLUCOSE,RANDOM 165 mg/dL (70-110); SODIUM SERUM 138 mmol/L (136-145); UREA NITROGEN, BLOOD 20 mg/dL (7-18)
[2022-06-16] MEDS: MULTIVITAMINS WITH MINERALS, THERAPEUTIC TABLET PO SCH (08:15)
[2022-06-16] MEDS: CHOLECALCIFEROL (VIT D3) 1,000 UNITS [25 MCG] TABLET PO SCH (08:15)
[2022-06-16] MEDS: FOLIC ACID 1 MG TABLET PO SCH (08:15)
[2022-06-16] MEDS: ROSUVASTATIN CALCIUM 20 MG TABLET PO SCH (08:15)
[2022-06-16] MEDS: TRIHEXYPHENIDYL HCL 2 MG TABLET PO SCH ×2 (08:15→16:31)
[2022-06-16] MEDS: OLANZapine 5 MG RAPDIS TABLET PO SCH ×2 (08:15→20:17)
[2022-06-16] MEDS: PIOGLITAZONE HCL 30 MG TABLET PO SCH (08:15)
[2022-06-16] MEDS: LinaGLIPtin 5 MG TABLET PO SCH (08:15)
[2022-06-16] MEDS: LOSARTAN POTASSIUM 25 MG TABLET PO SCH (08:15)
[2022-06-16] MEDS: OMEGA-3/DHA/EPA/FISH OIL 1,000 MG CAPSULE PO SCH (08:16)
[2022-06-16] MEDS: DIVALPROEX SODIUM 500 MG ER TABLET PO SCH ×2 (08:16→20:16)
[2022-06-16] MEDS: THIAMINE 100 MG TABLET PO SCH ×2 (08:16→16:31)
[2022-06-16] MEDS: ASPIRIN 81 MG CHEWABLE TABLET PO SCH (08:16)
[2022-06-16 09:55] VITALS: BP 132/75
[2022-06-16 11:36] LABS: GLUCOMETER DEV NAME(LOC) BV2X.2; GLUCOSE,POINT OF CARE 235 MG/DL (70-110)
[2022-06-16 16:40] LABS: GLUCOMETER DEV NAME(LOC) BV2X.2; GLUCOSE,POINT OF CARE 269 MG/DL (70-110)
[2022-06-16 20:09] VITALS: BP 121/74
[2022-06-16] MEDS: MELATONIN 5 MG TABLET PO SCH (20:17)
[2022-06-16 20:20] LABS: GLUCOMETER DEV NAME(LOC) BV2X.2; GLUCOSE,POINT OF CARE 150 MG/DL (70-110)
[2022-06-16] MEDS: INSULIN GLARGINE,HUM.REC.ANLOG 100 UNITS/ML SQ SCH (20:27)
[2022-06-17 06:21] LABS: GLUCOMETER DEV NAME(LOC) BV2X.2; GLUCOSE,POINT OF CARE 203 MG/DL (70-110)
[2022-06-17] MEDS: MetFORMIN HCL 500 MG TABLET PO SCH ×2 (06:26→16:29)
[2022-06-17] MEDS: INSULIN LISPRO 100 UNITS/ML SQ PRN ×4 (06:29→20:45)
[2022-06-17 08:02] VITALS: BP 128/70
[2022-06-17] MEDS: ROSUVASTATIN CALCIUM 20 MG TABLET PO SCH (08:36)
[2022-06-17] MEDS: LOSARTAN POTASSIUM 25 MG TABLET PO SCH (08:36)
[2022-06-17] MEDS: PIOGLITAZONE HCL 30 MG TABLET PO SCH (08:36)
[2022-06-17] MEDS: THIAMINE 100 MG TABLET PO SCH ×2 (08:36→16:29)
[2022-06-17] MEDS: TRIHEXYPHENIDYL HCL 2 MG TABLET PO SCH ×2 (08:37→16:29)
[2022-06-17] MEDS: OMEGA-3/DHA/EPA/FISH OIL 1,000 MG CAPSULE PO SCH (08:37)
[2022-06-17] MEDS: MULTIVITAMINS WITH MINERALS, THERAPEUTIC TABLET PO SCH (08:37)
[2022-06-17] MEDS: OLANZapine 5 MG RAPDIS TABLET PO SCH ×2 (08:37→20:47)
[2022-06-17] MEDS: DIVALPROEX SODIUM 500 MG ER TABLET PO SCH ×2 (08:37→20:47)
[2022-06-17] MEDS: FOLIC ACID 1 MG TABLET PO SCH (08:37)
[2022-06-17] MEDS: LinaGLIPtin 5 MG TABLET PO SCH (08:38)
[2022-06-17] MEDS: ASPIRIN 81 MG CHEWABLE TABLET PO SCH (08:38)
[2022-06-17] MEDS: CHOLECALCIFEROL (VIT D3) 1,000 UNITS [25 MCG] TABLET PO SCH (08:39)
[2022-06-17 11:31] LABS: GLUCOMETER DEV NAME(LOC) BV2X.2; GLUCOSE,POINT OF CARE 180 MG/DL (70-110)
[2022-06-17 16:41] LABS: GLUCOMETER DEV NAME(LOC) BV2X.2; GLUCOSE,POINT OF CARE 162 MG/DL (70-110)
[2022-06-17 20:03] VITALS: BP 110/71
[2022-06-17 20:31] LABS: GLUCOMETER DEV NAME(LOC) BV2X.2; GLUCOSE,POINT OF CARE 153 MG/DL (70-110)
[2022-06-17] MEDS: INSULIN GLARGINE,HUM.REC.ANLOG 100 UNITS/ML SQ SCH (20:45)
[2022-06-17] MEDS: MELATONIN 5 MG TABLET PO SCH (20:47)
[2022-06-18 06:51] LABS: GLUCOMETER DEV NAME(LOC) BV2X.2; GLUCOSE,POINT OF CARE 113 MG/DL (70-110)
[2022-06-18] MEDS: MetFORMIN HCL 500 MG TABLET PO SCH ×2 (06:52→16:45)
[2022-06-18 08:27] VITALS: BP 124/66
[2022-06-18] MEDS: PIOGLITAZONE HCL 30 MG TABLET PO SCH (08:44)
[2022-06-18] MEDS: LOSARTAN POTASSIUM 25 MG TABLET PO SCH (08:44)
[2022-06-18] MEDS: OMEGA-3/DHA/EPA/FISH OIL 1,000 MG CAPSULE PO SCH (08:44)
[2022-06-18] MEDS: MULTIVITAMINS WITH MINERALS, THERAPEUTIC TABLET PO SCH (08:45)
[2022-06-18] MEDS: ROSUVASTATIN CALCIUM 20 MG TABLET PO SCH (08:45)
[2022-06-18] MEDS: LinaGLIPtin 5 MG TABLET PO SCH (08:45)
[2022-06-18] MEDS: DIVALPROEX SODIUM 500 MG ER TABLET PO SCH ×2 (08:46→20:20)
[2022-06-18] MEDS: TRIHEXYPHENIDYL HCL 2 MG TABLET PO SCH ×2 (08:46→16:45)
[2022-06-18] MEDS: ASPIRIN 81 MG CHEWABLE TABLET PO SCH (08:46)
[2022-06-18] MEDS: THIAMINE 100 MG TABLET PO SCH ×2 (08:47→16:45)
[2022-06-18] MEDS: FOLIC ACID 1 MG TABLET PO SCH (08:47)
[2022-06-18] MEDS: OLANZapine 5 MG RAPDIS TABLET PO SCH (08:47)
[2022-06-18] MEDS: CHOLECALCIFEROL (VIT D3) 1,000 UNITS [25 MCG] TABLET PO SCH (08:47)
[2022-06-18] MEDS: INSULIN LISPRO 100 UNITS/ML SQ PRN ×3 (11:26→20:36)
[2022-06-18 11:36] LABS: GLUCOMETER DEV NAME(LOC) BV2X.2; GLUCOSE,POINT OF CARE 169 MG/DL (70-110)
[2022-06-18 16:15] LABS: GLUCOMETER DEV NAME(LOC) BV2X.2; GLUCOSE,POINT OF CARE 143 MG/DL (70-110)
[2022-06-18 20:05] VITALS: BP 130/86
[2022-06-18] MEDS: OLANZapine 10 MG RAPDIS TABLET PO SCH (20:19)
[2022-06-18] MEDS: MELATONIN 5 MG TABLET PO SCH (20:20)
[2022-06-18 20:21] LABS: GLUCOMETER DEV NAME(LOC) BV2X.2; GLUCOSE,POINT OF CARE 161 MG/DL (70-110)
[2022-06-18] MEDS: INSULIN GLARGINE,HUM.REC.ANLOG 100 UNITS/ML SQ SCH (20:34)
[2022-06-19 06:21] LABS: GLUCOMETER DEV NAME(LOC) BV2X.2; GLUCOSE,POINT OF CARE 145 MG/DL (70-110)
[2022-06-19] MEDS: MetFORMIN HCL 500 MG TABLET PO SCH ×2 (06:38→18:15)
[2022-06-19] MEDS: INSULIN LISPRO 100 UNITS/ML SQ PRN ×4 (06:40→20:47)
[2022-06-19] MEDS: TRIHEXYPHENIDYL HCL 2 MG TABLET PO SCH ×2 (08:32→18:15)
[2022-06-19] MEDS: PIOGLITAZONE HCL 30 MG TABLET PO SCH (08:32)
[2022-06-19] MEDS: ROSUVASTATIN CALCIUM 20 MG TABLET PO SCH (08:34)
[2022-06-19] MEDS: ASPIRIN 81 MG CHEWABLE TABLET PO SCH (08:34)
[2022-06-19] MEDS: MULTIVITAMINS WITH MINERALS, THERAPEUTIC TABLET PO SCH (08:34)
[2022-06-19] MEDS: LOSARTAN POTASSIUM 25 MG TABLET PO SCH (08:34)
[2022-06-19] MEDS: DIVALPROEX SODIUM 500 MG ER TABLET PO SCH ×2 (08:34→20:18)
[2022-06-19] MEDS: OMEGA-3/DHA/EPA/FISH OIL 1,000 MG CAPSULE PO SCH (08:34)
[2022-06-19] MEDS: FOLIC ACID 1 MG TABLET PO SCH (08:34)
[2022-06-19] MEDS: OLANZapine 5 MG RAPDIS TABLET PO SCH (08:35)
[2022-06-19] MEDS: THIAMINE 100 MG TABLET PO SCH ×2 (08:35→18:15)
[2022-06-19] MEDS: CHOLECALCIFEROL (VIT D3) 1,000 UNITS [25 MCG] TABLET PO SCH (08:35)
[2022-06-19] MEDS: LinaGLIPtin 5 MG TABLET PO SCH (08:35)
[2022-06-19 08:39] VITALS: BP 128/80
[2022-06-19 11:40] LABS: GLUCOMETER DEV NAME(LOC) BV2X.2; GLUCOSE,POINT OF CARE 128 MG/DL (70-110)
[2022-06-19 17:41] LABS: GLUCOMETER DEV NAME(LOC) BV2X.2; GLUCOSE,POINT OF CARE 180 MG/DL (70-110)
[2022-06-19 20:12] VITALS: BP 106/71
[2022-06-19] MEDS: MELATONIN 5 MG TABLET PO SCH (20:18)
[2022-06-19] MEDS: OLANZapine 10 MG RAPDIS TABLET PO SCH (20:19)
[2022-06-19] MEDS: INSULIN GLARGINE,HUM.REC.ANLOG 100 UNITS/ML SQ SCH (20:45)
[2022-06-19 20:46] LABS: GLUCOMETER DEV NAME(LOC) BV2X.2; GLUCOSE,POINT OF CARE 184 MG/DL (70-110)
[2022-06-20 06:46] LABS: GLUCOMETER DEV NAME(LOC) BV2X.2; GLUCOSE,POINT OF CARE 100 MG/DL (70-110)
[2022-06-20] MEDS: MetFORMIN HCL 500 MG TABLET PO SCH ×2 (06:48→16:44)
[2022-06-20 08:30] VITALS: BP 108/61
[2022-06-20] MEDS: OMEGA-3/DHA/EPA/FISH OIL 1,000 MG CAPSULE PO SCH (08:33)
[2022-06-20] MEDS: ROSUVASTATIN CALCIUM 20 MG TABLET PO SCH (08:34)
[2022-06-20] MEDS: ASPIRIN 81 MG CHEWABLE TABLET PO SCH (08:34)
[2022-06-20] MEDS: LOSARTAN POTASSIUM 25 MG TABLET PO SCH (08:34)
[2022-06-20] MEDS: PIOGLITAZONE HCL 30 MG TABLET PO SCH (08:34)
[2022-06-20] MEDS: OLANZapine 5 MG RAPDIS TABLET PO SCH (08:34)
[2022-06-20] MEDS: TRIHEXYPHENIDYL HCL 2 MG TABLET PO SCH ×2 (08:34→16:44)
[2022-06-20] MEDS: DIVALPROEX SODIUM 500 MG ER TABLET PO SCH ×2 (08:34→20:36)
[2022-06-20] MEDS: LinaGLIPtin 5 MG TABLET PO SCH (08:34)
[2022-06-20] MEDS: MULTIVITAMINS WITH MINERALS, THERAPEUTIC TABLET PO SCH (08:34)
[2022-06-20] MEDS: THIAMINE 100 MG TABLET PO SCH ×2 (08:34→16:44)
[2022-06-20] MEDS: CHOLECALCIFEROL (VIT D3) 1,000 UNITS [25 MCG] TABLET PO SCH (08:34)
[2022-06-20] MEDS: FOLIC ACID 1 MG TABLET PO SCH (08:34)
[2022-06-20] MEDS: INSULIN LISPRO 100 UNITS/ML SQ PRN ×3 (11:58→20:54)
[2022-06-20 12:11] LABS: GLUCOMETER DEV NAME(LOC) BV2X.2; GLUCOSE,POINT OF CARE 195 MG/DL (70-110)
[2022-06-20 15:45] VITALS: BP 104/71
[2022-06-20 17:01] LABS: GLUCOMETER DEV NAME(LOC) BV2X.2; GLUCOSE,POINT OF CARE 188 MG/DL (70-110)
[2022-06-20 17:16] VITALS: BP 104/71
[2022-06-20] MEDS: OLANZapine 10 MG RAPDIS TABLET PO SCH (20:36)
[2022-06-20] MEDS: MELATONIN 5 MG TABLET PO SCH (20:36)
[2022-06-20] MEDS: INSULIN GLARGINE,HUM.REC.ANLOG 100 UNITS/ML SQ SCH (20:54)
[2022-06-20 21:01] LABS: GLUCOMETER DEV NAME(LOC) BV2X.2; GLUCOSE,POINT OF CARE 214 MG/DL (70-110)
[2022-06-20 21:55] VITALS: BP 123/77
[2022-06-21 06:51] LABS: GLUCOMETER DEV NAME(LOC) BV2X.2; GLUCOSE,POINT OF CARE 130 MG/DL (70-110)
[2022-06-21] MEDS: MetFORMIN HCL 500 MG TABLET PO SCH ×2 (07:05→16:25)
[2022-06-21 08:04] VITALS: BP 118/60
[2022-06-21] MEDS: THIAMINE 100 MG TABLET PO SCH (09:22)
[2022-06-21] MEDS: TRIHEXYPHENIDYL HCL 2 MG TABLET PO SCH ×2 (09:22→16:25)
[2022-06-21] MEDS: FOLIC ACID 1 MG TABLET PO SCH (09:22)
[2022-06-21] MEDS: OMEGA-3/DHA/EPA/FISH OIL 1,000 MG CAPSULE PO SCH (09:22)
[2022-06-21] MEDS: PIOGLITAZONE HCL 30 MG TABLET PO SCH (09:22)
[2022-06-21] MEDS: MULTIVITAMINS WITH MINERALS, THERAPEUTIC TABLET PO SCH (09:22)
[2022-06-21] MEDS: CHOLECALCIFEROL (VIT D3) 1,000 UNITS [25 MCG] TABLET PO SCH (09:22)
[2022-06-21] MEDS: ROSUVASTATIN CALCIUM 20 MG TABLET PO SCH (09:22)
[2022-06-21] MEDS: LinaGLIPtin 5 MG TABLET PO SCH (09:22)
[2022-06-21] MEDS: DIVALPROEX SODIUM 500 MG ER TABLET PO SCH ×2 (09:22→20:36)
[2022-06-21] MEDS: LOSARTAN POTASSIUM 25 MG TABLET PO SCH (09:22)
[2022-06-21] MEDS: OLANZapine 5 MG RAPDIS TABLET PO SCH (09:23)
[2022-06-21] MEDS: ASPIRIN 81 MG CHEWABLE TABLET PO SCH (09:23)
[2022-06-21 11:11] LABS: GLUCOMETER DEV NAME(LOC) BV2X.2; GLUCOSE,POINT OF CARE 107 MG/DL (70-110)
[2022-06-21] MEDS: INSULIN LISPRO 100 UNITS/ML SQ PRN ×2 (16:34→20:42)
[2022-06-21 16:47] LABS: GLUCOMETER DEV NAME(LOC) BV2X.2; GLUCOSE,POINT OF CARE 210 MG/DL (70-110)
[2022-06-21 20:10] VITALS: BP 100/60
[2022-06-21] MEDS: MELATONIN 5 MG TABLET PO SCH (20:35)
[2022-06-21] MEDS: OLANZapine 10 MG RAPDIS TABLET PO SCH (20:36)
[2022-06-21] MEDS: INSULIN GLARGINE,HUM.REC.ANLOG 100 UNITS/ML SQ SCH (20:40)
[2022-06-21 20:46] LABS: GLUCOMETER DEV NAME(LOC) BV2X.2; GLUCOSE,POINT OF CARE 151 MG/DL (70-110)
[2022-06-22 06:36] LABS: GLUCOMETER DEV NAME(LOC) BV2X.2; GLUCOSE,POINT OF CARE 97 MG/DL (70-110)
[2022-06-22] MEDS: MetFORMIN HCL 500 MG TABLET PO SCH ×2 (06:51→17:20)
[2022-06-22] MEDS: ASPIRIN 81 MG CHEWABLE TABLET PO SCH (08:17)
[2022-06-22] MEDS: DIVALPROEX SODIUM 500 MG ER TABLET PO SCH ×2 (08:17→20:39)
[2022-06-22] MEDS: CHOLECALCIFEROL (VIT D3) 1,000 UNITS [25 MCG] TABLET PO SCH (08:18)
[2022-06-22] MEDS: OMEGA-3/DHA/EPA/FISH OIL 1,000 MG CAPSULE PO SCH (08:18)
[2022-06-22] MEDS: TRIHEXYPHENIDYL HCL 2 MG TABLET PO SCH ×2 (08:18→17:20)
[2022-06-22] MEDS: MULTIVITAMINS WITH MINERALS, THERAPEUTIC TABLET PO SCH (08:18)
[2022-06-22] MEDS: OLANZapine 5 MG RAPDIS TABLET PO SCH (08:18)
[2022-06-22] MEDS: LOSARTAN POTASSIUM 25 MG TABLET PO SCH (08:19)
[2022-06-22] MEDS: LinaGLIPtin 5 MG TABLET PO SCH (08:19)
[2022-06-22] MEDS: PIOGLITAZONE HCL 30 MG TABLET PO SCH (08:19)
[2022-06-22] MEDS: ROSUVASTATIN CALCIUM 20 MG TABLET PO SCH (08:20)
[2022-06-22 08:24] VITALS: BP 116/63
[2022-06-22 11:56] LABS: GLUCOMETER DEV NAME(LOC) POC.BV
[2022-06-22 12:06] LABS: GLUCOMETER DEV NAME(LOC) BV2X.2; GLUCOSE,POINT OF CARE 126 MG/DL (70-110)
[2022-06-22] MEDS: INSULIN LISPRO 100 UNITS/ML SQ PRN ×3 (12:12→20:35)
[2022-06-22 16:36] LABS: GLUCOMETER DEV NAME(LOC) BV2X.2; GLUCOSE,POINT OF CARE 173 MG/DL (70-110)
[2022-06-22] MEDS ORDERED: OMEG-135 PO (18:07)
[2022-06-22] MEDS ORDERED: OLAN10TA26 PO (18:07)
[2022-06-22] MEDS ORDERED: OLAN5TAB94 PO (18:07)
[2022-06-22] MEDS ORDERED: DIVA500T69 PO (18:07)
[2022-06-22] MEDS ORDERED: TRIH2TAB3 PO (18:07)
[2022-06-22] MEDS ORDERED: MELA5TAB40 PO (18:07)
[2022-06-22 20:22] VITALS: BP 117/67
[2022-06-22 20:31] LABS: GLUCOMETER DEV NAME(LOC) BV2X.2; GLUCOSE,POINT OF CARE 214 MG/DL (70-110)
[2022-06-22] MEDS: INSULIN GLARGINE,HUM.REC.ANLOG 100 UNITS/ML SQ SCH (20:35)
[2022-06-22] MEDS: MELATONIN 5 MG TABLET PO SCH (20:39)
[2022-06-22] MEDS: OLANZapine 10 MG RAPDIS TABLET PO SCH (20:39)
[2022-06-23 06:31] LABS: GLUCOMETER DEV NAME(LOC) BV2X.2; GLUCOSE,POINT OF CARE 92 MG/DL (70-110)
[2022-06-23] MEDS: MetFORMIN HCL 500 MG TABLET PO SCH (06:52)
[2022-06-23] MEDS: ROSUVASTATIN CALCIUM 20 MG TABLET PO SCH (08:09)
[2022-06-23] MEDS: ASPIRIN 81 MG CHEWABLE TABLET PO SCH (08:09)
[2022-06-23] MEDS: MULTIVITAMINS WITH MINERALS, THERAPEUTIC TABLET PO SCH (08:09)
[2022-06-23] MEDS: LinaGLIPtin 5 MG TABLET PO SCH (08:09)
[2022-06-23] MEDS: PIOGLITAZONE HCL 30 MG TABLET PO SCH (08:10)
[2022-06-23] MEDS: CHOLECALCIFEROL (VIT D3) 1,000 UNITS [25 MCG] TABLET PO SCH (08:10)
[2022-06-23] MEDS: OMEGA-3/DHA/EPA/FISH OIL 1,000 MG CAPSULE PO SCH (08:10)
[2022-06-23] MEDS: DIVALPROEX SODIUM 500 MG ER TABLET PO SCH (08:10)
[2022-06-23] MEDS: LOSARTAN POTASSIUM 25 MG TABLET PO SCH (08:10)
[2022-06-23] MEDS: TRIHEXYPHENIDYL HCL 2 MG TABLET PO SCH (08:13)
[2022-06-23] MEDS: OLANZapine 5 MG RAPDIS TABLET PO SCH (08:14)
[2022-06-23 08:21] VITALS: BP 120/60
[2022-06-23] MEDS: INSULIN LISPRO 100 UNITS/ML SQ PRN (11:35)
[2022-06-23 11:47] LABS: GLUCOMETER DEV NAME(LOC) BV2X.2; GLUCOSE,POINT OF CARE 141 MG/DL (70-110)
[2022-06-23] MEDS ORDERED: METF-1211 PO ×2 (13:58→17:52)
[2022-06-23] MEDS ORDERED: INSLAN SQ ×2 (14:01→17:52)
[2022-06-23] MEDS ORDERED: LINA5TAB PO ×2 (14:02→17:52)
[2022-06-23] MEDS ORDERED: PIOG30TA10 PO (17:52)
[2022-06-23] MEDS ORDERED: ROSU20TA73 PO (17:52)
[2022-06-23] MEDS ORDERED: ASPI-1444 PO (17:52)
== END 2022-06-23 16:40 | disposition home or self-care (01) | DRG 885 ==
LOC: EMS 00:35 → B2X 03:00
PROVIDERS: ADMIT Psychiatry & Neurology Psychiatry; ATTEND Psychiatry & Neurology Psychiatry
DX: F25.0 Schizoaffective disorder, bipolar type (principal); F06.30 Mood disorder due to known physiological condition, unspecified; N18.32 Chronic kidney disease, stage 3b; E11.65 Type 2 diabetes mellitus with hyperglycemia; I69.351 Hemiplegia and hemiparesis following cerebral infarction affecting right dominant side; E87.1 Hypo-osmolality and hyponatremia; E11.22 Type 2 diabetes mellitus with diabetic chronic kidney disease; E78.5 Hyperlipidemia, unspecified; F42.9 Obsessive-compulsive disorder, unspecified; F41.9 Anxiety disorder, unspecified; E87.5 Hyperkalemia; D64.9 Anemia, unspecified; Z20.822 Contact with and (suspected) exposure to COVID-19; I12.9 Hypertensive chronic kidney disease with stage 1 through stage 4 chronic kidney disease, or unspecified chronic kidney disease; Z55.9 Problems related to education and literacy, unspecified; Z59.9 Problem related to housing and economic circumstances, unspecified; Z63.9 Problem related to primary support group, unspecified; Z65.3 Problems related to other legal circumstances; Z79.4 Long term (current) use of insulin; Z87.01 Personal history of pneumonia (recurrent); Z87.440 Personal history of urinary (tract) infections; Z98.51 Tubal ligation status; Z28.21 Immunization not carried out because of patient refusal
CPT/HCPCS: 71046; 80048; 80053; 80061; 80164; 80307; 81001; 82962; 83036; 84439; 84443; 85025; 86592; 99285; G0480; J1815; Q9967; 36415-L1; 36415-TC

== ENCOUNTER → 2022-12-28 | Outpatient (CLI) | payer MEDICARE ==
[~2022-12-28] MED LIST changes: +ASPI-1444 PO; -CHOL100018 PO; +CHOL25TA4 PO; +DIVA500T69 PO; -DSS100 PO; +INSLAN SQ; -INSNOV SQ; -LEVO-72 PO; +LINA5TAB PO; +LOSA-381 PO; +MELA5TAB40 PO; -MV-M1TAB2 PO; +OLAN10TA26 PO; +OMEG-135 PO; +PIOG30TA10 PO; +ROSU20TA73 PO; -SIMV-260 PO; -SITA100 PO; +TRIH2TAB3 PO
== END | disposition home or self-care (01) ==
LOC: LABMN 12:56
PROVIDERS: ATTEND Psychiatry & Neurology Psychiatry
DX: F25.0 Schizoaffective disorder, bipolar type (principal)
CPT/HCPCS: 80164

== ENCOUNTER 2024-01-05 12:00 | Inpatient (IN) | payer MEDICARE, MEDICAID ==
[~2024-01-05] VITALS: Ht 160 cm; Wt 78.2 kg
[~2024-01-05 12:00] MED LIST changes: +DIVA-153 PO; -DIVA500T53 PO; -ROSU20TA73 PO; +ROSU20TA98 PO
[2024-01-05] MEDS ORDERED: HALOPERIDOL 5 MG TABLET PO PRN (12:15)
[2024-01-05] MEDS ORDERED: LORazepam 2 MG TABLET PO PRN (12:15)
[2024-01-05] MEDS ORDERED: DOCU-119 PO (18:35)
[2024-01-05] MEDS ORDERED: FAMO20 PO (18:36)
[2024-01-05] MEDS ORDERED: HEPA500018 SQ (18:37)
[2024-01-05] MEDS ORDERED: INSLAN SQ (18:38)
[2024-01-05] MEDS ORDERED: ACET-784 PO (18:40)
[2024-01-05] MEDS ORDERED: INSU100V SQ (18:44)
[2024-01-05] MEDS ORDERED: DEXTROSE 50%-WATER 25 GM/50 ML SYRINGE IVP PRN (23:15)
[2024-01-05] MEDS ORDERED: ACETAMINOPHEN 650 MG/20.3 ML SOLUTION UDCUP PO PRN (23:15)
[2024-01-05] MEDS ORDERED: DOCUSATE SODIUM 100 MG CAPSULE PO PRN (23:15)
[2024-01-05 23:42] VITALS: BP 155/81; PULSE 87; RESP 18; TEMP 97.5; O2SAT 98
[2024-01-06] MEDS ORDERED: INFLUENZA VIRUS VACCINE TVS (6MO+) 2024-25/PF 45 MCG/0.5 ML SYRINGE IM. ONE (01:45)
[2024-01-06 06:31] LABS: GLUCOMETER DEV NAME(LOC) 3E.I 2; GLUCOSE,POINT OF CARE 243 MG/DL (70-110)
[2024-01-06] MEDS: INSULIN LISPRO 100 UNITS/ML SQ PRN (07:07)
[2024-01-06 08:56] VITALS: BP 97/60; PULSE 97; RESP 18; TEMP 97.9; O2SAT 98
[2024-01-06] MEDS: FAMOTIDINE 20 MG TABLET PO SCH (08:58)
[2024-01-06] MEDS: ASPIRIN 81 MG DR TABLET PO SCH (08:58)
[2024-01-06] MEDS: LOSARTAN POTASSIUM 25 MG TABLET PO SCH (08:59)
[2024-01-06] MEDS: INSULIN GLARGINE,HUM.REC.ANLOG 100 UNITS/ML SQ SCH (09:49)
[2024-01-06] MEDS ORDERED: ACETAMINOPHEN 325 MG TABLET PO PRN (10:00)
[2024-01-06] MEDS ORDERED: GuaiFENesin/D-METHORPHAN [SUGAR-FREE] 200-20MG/10 ML SYRUP UDCUP PO PRN (10:00)
[2024-01-06] MEDS ORDERED: LOPERAMIDE HCL 2 MG CAPSULE PO PRN (10:00)
[2024-01-06] MEDS ORDERED: ONDANSETRON 4 MG TABLET PO PRN (10:00)
[2024-01-06] MEDS ORDERED: PETROLATUM,WHITE 28 GM JELLY TP PRN (10:00)
[2024-01-06] MEDS ORDERED: MAG HYDROX/ALUMINUM HYD/SIMETH ES 30 ML SUSPENSION UDCUP PO PRN (10:00)
[2024-01-06] MEDS ORDERED: NICOTINE 14 MG/24 HOUR PATCH TD PRN (10:00)
[2024-01-06] MEDS ORDERED: CloNIDine HCL 0.1 MG TABLET PO PRN (10:00)
[2024-01-06] MEDS ORDERED: IBUPROFEN 400 MG TABLET PO PRN (10:00)
[2024-01-06] MEDS ORDERED: MAGNESIUM HYDROXIDE SUSPENSION 30 ML UDCUP PO PRN (10:00)
[2024-01-06] MEDS ORDERED: ALBUTEROL SULFATE HFA 90 MCG/PUFF 8 GM INHALER IH PRN (10:00)
[2024-01-06] MEDS ORDERED: DOCUSATE SODIUM 100 MG CAPSULE PO PRN (10:00)
[2024-01-06 11:56] LABS: GLUCOMETER DEV NAME(LOC) 3EX.2; GLUCOSE,POINT OF CARE 299 MG/DL (70-110)
[2024-01-06] MEDS: DIVALPROEX SODIUM 500 MG DR TABLET PO SCH (16:27)
[2024-01-06] MEDS: OLANZapine 10 MG TABLET PO SCH (16:27)
[2024-01-06] MEDS: TRIHEXYPHENIDYL HCL 2 MG TABLET PO SCH (16:28)
[2024-01-06 17:11] LABS: GLUCOMETER DEV NAME(LOC) 3EX.2; GLUCOSE,POINT OF CARE 238 MG/DL (70-110)
[2024-01-06 21:36] LABS: GLUCOMETER DEV NAME(LOC) 3E.I 2; GLUCOSE,POINT OF CARE 349 MG/DL (70-110)
[2024-01-06 22:03] VITALS: BP 126/80; PULSE 91; RESP 20; TEMP 97.5; O2SAT 95
[2024-01-07 06:02] LABS: GLUCOMETER DEV NAME(LOC) 3E.I 2; GLUCOSE,POINT OF CARE 271 MG/DL (70-110)
[2024-01-07 07:50] LABS: ALBUMIN 2.8 g/dL (3.4-5.0); BILIRUBIN,TOTAL 0.3 mg/dL (0.1-1.0); CALCIUM, TOTAL 9.6 mg/dL (8.8-10.5); CREATININE 1.63 mg/dL (0.60-1.30); POTASSIUM 4.7 mmol/L (3.5-5.1); THYROID STIMULATING HORMONE 1.96 uIU/mL (0.36-3.74); TOTAL PROTEIN, SERUM 6.8 g/dL (6.4-8.2)
[2024-01-07 07:53] LABS: HEMOGLOBIN A1C 11.9 % (3.8-5.6)
[2024-01-07 08:23] LABS: CHOL/HDL RATIO 6.1 (3.9-5.7)
[2024-01-07 09:00] VITALS: BP 152/97; PULSE 108; RESP 18; TEMP 97.9; O2SAT 96
[2024-01-07 11:51] LABS: GLUCOMETER DEV NAME(LOC) 3EX.2; GLUCOSE,POINT OF CARE 260 MG/DL (70-110)
[2024-01-07 16:56] LABS: GLUCOMETER DEV NAME(LOC) 3EX.2; GLUCOSE,POINT OF CARE 281 MG/DL (70-110)
[2024-01-07 17:10] LABS: GLUCOMETER DEV NAME(LOC) 6N.2B; GLUCOSE,POINT OF CARE 307 MG/DL (70-110)
[2024-01-07 21:41] LABS: GLUCOMETER DEV NAME(LOC) 3E.I 2; GLUCOSE,POINT OF CARE 334 MG/DL (70-110)
[2024-01-07 23:23] VITALS: BP 119/68; PULSE 96; RESP 18; TEMP 97.2; O2SAT 98
[2024-01-08 06:16] LABS: GLUCOMETER DEV NAME(LOC) 3E.I 2; GLUCOSE,POINT OF CARE 248 MG/DL (70-110)
[2024-01-08 08:50] VITALS: BP 119/65; PULSE 97; RESP 17; O2SAT 99
[2024-01-08 11:51] LABS: GLUCOMETER DEV NAME(LOC) 3EX.2; GLUCOSE,POINT OF CARE 213 MG/DL (70-110)
[2024-01-08 17:46] LABS: GLUCOMETER DEV NAME(LOC) 3EX.2; GLUCOSE,POINT OF CARE 161 MG/DL (70-110)
[2024-01-08 20:05] LABS: GLUCOMETER DEV NAME(LOC) 3E.I 2; GLUCOSE,POINT OF CARE 284 MG/DL (70-110)
[2024-01-08 20:58] VITALS: BP 147/81; PULSE 77; RESP 18; TEMP 98.3; O2SAT 97
[2024-01-09 06:50] LABS: GLUCOMETER DEV NAME(LOC) 3E.I 2; GLUCOSE,POINT OF CARE 178 MG/DL (70-110)
[2024-01-09 08:50] VITALS: BP 103/59; PULSE 95; RESP 16; TEMP 97.7
[2024-01-09 12:06] LABS: GLUCOMETER DEV NAME(LOC) 3EX.2; GLUCOSE,POINT OF CARE 228 MG/DL (70-110)
[2024-01-09 17:30] LABS: GLUCOMETER DEV NAME(LOC) 3EX.2; GLUCOSE,POINT OF CARE 192 MG/DL (70-110)
[2024-01-09 20:15] LABS: GLUCOMETER DEV NAME(LOC) 3E.I 2; GLUCOSE,POINT OF CARE 299 MG/DL (70-110)
[2024-01-09 21:03] VITALS: BP 138/81; PULSE 93; RESP 19; TEMP 96.8; O2SAT 98
[2024-01-09] MEDS: SIMVASTATIN 10 MG TABLET PO SCH (21:33)
[2024-01-10 06:15] LABS: GLUCOMETER DEV NAME(LOC) 3E.I 2; GLUCOSE,POINT OF CARE 201 MG/DL (70-110)
[2024-01-10 09:04] LABS: CALCIUM, TOTAL 9.1 mg/dL (8.8-10.5); CREATININE 1.31 mg/dL (0.60-1.30); POTASSIUM 5.2 mmol/L (3.5-5.1)
[2024-01-10 10:30] VITALS: BP 118/61; PULSE 61; RESP 18; TEMP 97.3; O2SAT 97
[2024-01-10] MEDS: SODIUM CHLORIDE 1 GM TABLET PO SCH (11:24)
[2024-01-10] MEDS: SODIUM POLYSTYRENE SULFONATE 15 GM/60 ML SUSPENSION BOTTLE PO ONE (11:25)
[2024-01-10 12:30] LABS: GLUCOMETER DEV NAME(LOC) 3E.I 2; GLUCOSE,POINT OF CARE 245 MG/DL (70-110)
[2024-01-10 17:00] LABS: GLUCOMETER DEV NAME(LOC) 3EX.2; GLUCOSE,POINT OF CARE 187 MG/DL (70-110)
[2024-01-10 21:11] LABS: GLUCOMETER DEV NAME(LOC) 3E.I 2; GLUCOSE,POINT OF CARE 335 MG/DL (70-110)
[2024-01-10 21:50] VITALS: BP 133/79; PULSE 98; RESP 18; TEMP 98; O2SAT 99
[2024-01-11 06:06] LABS: GLUCOMETER DEV NAME(LOC) 3E.I 2; GLUCOSE,POINT OF CARE 191 MG/DL (70-110)
[2024-01-11 09:48] LABS: CREATININE 1.3 mg/dL (0.60-1.30)
[2024-01-11 11:36] LABS: GLUCOMETER DEV NAME(LOC) 3EX.2; GLUCOSE,POINT OF CARE 205 MG/DL (70-110)
[2024-01-11 11:49] VITALS: BP 113/74; PULSE 100; RESP 17; TEMP 96.8; O2SAT 97
[2024-01-11 17:11] LABS: GLUCOMETER DEV NAME(LOC) 3E.I 2; GLUCOSE,POINT OF CARE 187 MG/DL (70-110)
[2024-01-11 21:01] LABS: GLUCOMETER DEV NAME(LOC) 3E.I 2; GLUCOSE,POINT OF CARE 181 MG/DL (70-110)
[2024-01-11 21:50] VITALS: BP 140/66; PULSE 83; RESP 18; TEMP 97.4; O2SAT 98
[2024-01-12 06:10] LABS: GLUCOMETER DEV NAME(LOC) 3E.I 2; GLUCOSE,POINT OF CARE 184 MG/DL (70-110)
[2024-01-12 09:27] VITALS: BP 118/69; PULSE 95; RESP 18; TEMP 97.9; O2SAT 99
[2024-01-12 11:03] LABS: CALCIUM, TOTAL 8.9 mg/dL (8.8-10.5); CREATININE 1.48 mg/dL (0.60-1.30); POTASSIUM 5.7 mmol/L (3.5-5.1)
[2024-01-12 17:40] LABS: GLUCOMETER DEV NAME(LOC) 3E.I 2; GLUCOSE,POINT OF CARE 227 MG/DL (70-110)
[2024-01-12 17:40] LABS: GLUCOMETER DEV NAME(LOC) 3E.I 2; GLUCOSE,POINT OF CARE 282 MG/DL (70-110)
[2024-01-12] MEDS: SODIUM POLYSTYRENE SULFONATE 15 GM/60 ML SUSPENSION BOTTLE PO ONE (20:45)
[2024-01-12 21:51] LABS: GLUCOMETER DEV NAME(LOC) 3E.I 2; GLUCOSE,POINT OF CARE 287 MG/DL (70-110)
[2024-01-12 23:30] VITALS: BP 147/73; PULSE 89; RESP 18; TEMP 97.6; O2SAT 96
[2024-01-13 06:20] LABS: GLUCOMETER DEV NAME(LOC) 3E.I 2; GLUCOSE,POINT OF CARE 191 MG/DL (70-110)
[2024-01-13 08:11] LABS: CALCIUM, TOTAL 8.9 mg/dL (8.8-10.5); CREATININE 1.25 mg/dL (0.60-1.30); POTASSIUM 4.8 mmol/L (3.5-5.1)
[2024-01-13 08:32] VITALS: BP 125/75; PULSE 86; RESP 18; TEMP 97.6; O2SAT 98
[2024-01-13 11:40] LABS: GLUCOMETER DEV NAME(LOC) 3EX.2; GLUCOSE,POINT OF CARE 241 MG/DL (70-110)
[2024-01-13 17:20] LABS: GLUCOMETER DEV NAME(LOC) 3EX.2; GLUCOSE,POINT OF CARE 254 MG/DL (70-110)
[2024-01-13 20:25] LABS: GLUCOMETER DEV NAME(LOC) 3E.I 2; GLUCOSE,POINT OF CARE 237 MG/DL (70-110)
[2024-01-13 22:24] VITALS: BP 143/74; PULSE 84; RESP 18; TEMP 97.8; O2SAT 95
[2024-01-14 05:50] LABS: GLUCOMETER DEV NAME(LOC) 3E.I 2; GLUCOSE,POINT OF CARE 209 MG/DL (70-110)
[2024-01-14 09:00] VITALS: BP 149/89; PULSE 87; RESP 18; TEMP 96.8; O2SAT 97
[2024-01-14 11:51] LABS: GLUCOMETER DEV NAME(LOC) 3EX.2; GLUCOSE,POINT OF CARE 214 MG/DL (70-110)
[2024-01-14 17:16] LABS: GLUCOMETER DEV NAME(LOC) 3EX.2; GLUCOSE,POINT OF CARE 276 MG/DL (70-110)
[2024-01-14 20:46] VITALS: BP 134/70; PULSE 92; RESP 18; TEMP 97.8; O2SAT 96
[2024-01-15 00:46] LABS: GLUCOMETER DEV NAME(LOC) 3E.I 2; GLUCOSE,POINT OF CARE 389 MG/DL (70-110)
[2024-01-15 05:41] LABS: GLUCOMETER DEV NAME(LOC) 3E.I 2; GLUCOSE,POINT OF CARE 224 MG/DL (70-110)
[2024-01-15 12:11] LABS: GLUCOMETER DEV NAME(LOC) 3E.I 2; GLUCOSE,POINT OF CARE 252 MG/DL (70-110)
[2024-01-15 14:51] VITALS: BP 100/62; PULSE 68; RESP 18; TEMP 97.9
[2024-01-15 17:11] LABS: GLUCOMETER DEV NAME(LOC) 3EX.2; GLUCOSE,POINT OF CARE 211 MG/DL (70-110)
[2024-01-15 20:10] LABS: GLUCOMETER DEV NAME(LOC) 3E.I 2; GLUCOSE,POINT OF CARE 268 MG/DL (70-110)
[2024-01-15 20:19] VITALS: BP 116/71; PULSE 100; RESP 18; TEMP 97.4; O2SAT 97
[2024-01-16 06:20] LABS: GLUCOMETER DEV NAME(LOC) 3E.I 2; GLUCOSE,POINT OF CARE 189 MG/DL (70-110)
[2024-01-16 08:42] VITALS: BP 117/70; PULSE 99; RESP 17; TEMP 97.1; O2SAT 100
[2024-01-16 08:43] VITALS: BP 117/70; PULSE 99; RESP 17; TEMP 97.1; O2SAT 100
[2024-01-16 11:31] LABS: GLUCOMETER DEV NAME(LOC) 3EX.2; GLUCOSE,POINT OF CARE 210 MG/DL (70-110)
[2024-01-16 16:50] LABS: GLUCOMETER DEV NAME(LOC) 3EX.2; GLUCOSE,POINT OF CARE 304 MG/DL (70-110)
[2024-01-16 20:40] LABS: GLUCOMETER DEV NAME(LOC) 3E.I 2; GLUCOSE,POINT OF CARE 271 MG/DL (70-110)
[2024-01-16 22:36] VITALS: BP 141/64; PULSE 88; RESP 18; TEMP 97.6; O2SAT 99
[2024-01-17 05:40] LABS: GLUCOMETER DEV NAME(LOC) 3E.I 2; GLUCOSE,POINT OF CARE 294 MG/DL (70-110)
[2024-01-17 09:49] VITALS: BP 147/80; PULSE 89; RESP 18; TEMP 97.6; O2SAT 98
[2024-01-17 11:40] LABS: GLUCOMETER DEV NAME(LOC) 3EX.2; GLUCOSE,POINT OF CARE 248 MG/DL (70-110)
[2024-01-17 17:05] LABS: GLUCOMETER DEV NAME(LOC) 3EX.2; GLUCOSE,POINT OF CARE 295 MG/DL (70-110)
[2024-01-17 20:31] LABS: GLUCOMETER DEV NAME(LOC) 3E.I 2; GLUCOSE,POINT OF CARE 268 MG/DL (70-110)
[2024-01-17 21:24] VITALS: BP 148/70; PULSE 80; RESP 18; TEMP 97.3; O2SAT 96
[2024-01-18 05:35] LABS: GLUCOMETER DEV NAME(LOC) 3E.I 2; GLUCOSE,POINT OF CARE 220 MG/DL (70-110)
[2024-01-18 08:00] VITALS: BP 140/68; PULSE 75; RESP 17; TEMP 98.3; O2SAT 97
[2024-01-18 11:41] LABS: GLUCOMETER DEV NAME(LOC) 3EX.2; GLUCOSE,POINT OF CARE 256 MG/DL (70-110)
[2024-01-18 16:45] LABS: GLUCOMETER DEV NAME(LOC) 3EX.2; GLUCOSE,POINT OF CARE 321 MG/DL (70-110)
[2024-01-18 20:00] VITALS: BP 137/77; PULSE 82; RESP 18; TEMP 97.9; O2SAT 98
[2024-01-18 21:51] LABS: GLUCOMETER DEV NAME(LOC) 3E.I 2; GLUCOSE,POINT OF CARE 313 MG/DL (70-110)
[2024-01-19 07:00] LABS: GLUCOMETER DEV NAME(LOC) 3E.I 2; GLUCOSE,POINT OF CARE 219 MG/DL (70-110)
[2024-01-19 11:46] LABS: GLUCOMETER DEV NAME(LOC) 3E.I 2; GLUCOSE,POINT OF CARE 285 MG/DL (70-110)
[2024-01-19 12:45] VITALS: BP 118/75; PULSE 78; RESP 18; TEMP 97.6; O2SAT 96
[2024-01-19 16:45] LABS: GLUCOMETER DEV NAME(LOC) 3E.I 2; GLUCOSE,POINT OF CARE 247 MG/DL (70-110)
[2024-01-19 21:35] VITALS: BP 148/73; PULSE 75; RESP 18; TEMP 97; O2SAT 98
[2024-01-19 21:41] LABS: GLUCOMETER DEV NAME(LOC) 3E.I 2; GLUCOSE,POINT OF CARE 278 MG/DL (70-110)
[2024-01-20 06:45] LABS: GLUCOMETER DEV NAME(LOC) 3E.I 2; GLUCOSE,POINT OF CARE 219 MG/DL (70-110)
[2024-01-20 07:19] LABS: CALCIUM, TOTAL 8.8 mg/dL (8.8-10.5); CREATININE 1.29 mg/dL (0.60-1.30); POTASSIUM 4.9 mmol/L (3.5-5.1)
[2024-01-20 09:12] VITALS: BP 139/70; PULSE 87; RESP 18; TEMP 96.9; O2SAT 98
[2024-01-20 11:40] LABS: GLUCOMETER DEV NAME(LOC) 3EX.2; GLUCOSE,POINT OF CARE 243 MG/DL (70-110)
[2024-01-20 16:21] LABS: GLUCOMETER DEV NAME(LOC) 3EX.2; GLUCOSE,POINT OF CARE 234 MG/DL (70-110)
[2024-01-20 21:31] LABS: GLUCOMETER DEV NAME(LOC) 3E.I 2; GLUCOSE,POINT OF CARE 235 MG/DL (70-110)
[2024-01-20 23:00] VITALS: BP 127/71; PULSE 74; RESP 18; TEMP 98; O2SAT 98
[2024-01-21 06:36] LABS: GLUCOMETER DEV NAME(LOC) 3E.I 2; GLUCOSE,POINT OF CARE 221 MG/DL (70-110)
[2024-01-21 11:16] VITALS: BP 130/65; PULSE 62; RESP 16; TEMP 97.7; O2SAT 98
[2024-01-21 11:51] LABS: GLUCOMETER DEV NAME(LOC) 3EX.2; GLUCOSE,POINT OF CARE 240 MG/DL (70-110)
[2024-01-21] MEDS: INSULIN GLARGINE,HUM.REC.ANLOG 100 UNITS/ML SQ SCH (17:06)
[2024-01-21 20:16] LABS: GLUCOMETER DEV NAME(LOC) 3E.I 2; GLUCOSE,POINT OF CARE 284 MG/DL (70-110)
[2024-01-21 21:31] VITALS: BP 129/70; PULSE 75; RESP 18; TEMP 97.2; O2SAT 97
[2024-01-22 05:41] LABS: GLUCOMETER DEV NAME(LOC) 3E.I 2; GLUCOSE,POINT OF CARE 219 MG/DL (70-110)
[2024-01-22 08:30] VITALS: BP 126/65; PULSE 61; RESP 19; TEMP 98.1; O2SAT 95
[2024-01-22 11:50] LABS: GLUCOMETER DEV NAME(LOC) 3EX.2; GLUCOSE,POINT OF CARE 252 MG/DL (70-110)
[2024-01-22 16:46] LABS: GLUCOMETER DEV NAME(LOC) 3EX.2; GLUCOSE,POINT OF CARE 169 MG/DL (70-110)
[2024-01-22 21:21] VITALS: BP 139/73; PULSE 80; RESP 18; TEMP 97.5; O2SAT 97
[2024-01-22 22:46] LABS: GLUCOMETER DEV NAME(LOC) 3EX.2; GLUCOSE,POINT OF CARE 236 MG/DL (70-110)
[2024-01-23 05:56] LABS: GLUCOMETER DEV NAME(LOC) 3E.I 2; GLUCOSE,POINT OF CARE 181 MG/DL (70-110)
[2024-01-23 09:00] VITALS: BP 130/76; PULSE 80; RESP 18; TEMP 97.6; O2SAT 98
[2024-01-23 11:36] LABS: GLUCOMETER DEV NAME(LOC) 3E.I 2; GLUCOSE,POINT OF CARE 229 MG/DL (70-110)
[2024-01-23 16:31] LABS: GLUCOMETER DEV NAME(LOC) 3E.I 2; GLUCOSE,POINT OF CARE 265 MG/DL (70-110)
[2024-01-23 21:06] LABS: GLUCOMETER DEV NAME(LOC) 3E.I 2; GLUCOSE,POINT OF CARE 233 MG/DL (70-110)
[2024-01-23 21:09] VITALS: BP 136/73; PULSE 86; RESP 18; TEMP 96.8; O2SAT 97
[2024-01-24 06:11] LABS: GLUCOMETER DEV NAME(LOC) 3E.I 2; GLUCOSE,POINT OF CARE 200 MG/DL (70-110)
[2024-01-24 09:46] VITALS: BP 131/69; PULSE 83; RESP 18; TEMP 97.9; O2SAT 99
[2024-01-24 11:40] LABS: GLUCOMETER DEV NAME(LOC) 3EX.2; GLUCOSE,POINT OF CARE 177 MG/DL (70-110)
[2024-01-24 16:51] LABS: GLUCOMETER DEV NAME(LOC) 3EX.2; GLUCOSE,POINT OF CARE 214 MG/DL (70-110)
[2024-01-24 18:19] LABS: APPEARANCE,URINE CLEAR (CLEAR); BILIRUBIN,URINE NEGATIVE (NEGATIVE); COLOR,URINE LIGHT YELLOW (YELLOW); GLUCOSE, URINE (UA) 150-200 mg/dL (NEGATIVE); KETONES,URINE NEGATIVE (NEGATIVE); LEUKOCYTE ESTERASE ,URINE NEGATIVE (NEGATIVE); NITRATE,URINE NEGATIVE (NEGATIVE); OCCULT BLOOD,URINE NEGATIVE (NEGATIVE); PH,URINE 6.5 (5.0-8.0); PROTEIN,URINE TRACE mg/dL (NEGATIVE); UROBILINOGEN,URINE <=1.0 mg/dL (<=1.0)
[2024-01-24 19:18] LABS: BACTERIA,URINE Rare /HPF (None Seen); MUCUS,URINE Rare LPF (None Seen); RBC,URINE 0-2 /HPF (0-2); SQUAMOUS EPITHELIAL CELL,UR Few /LPF (None Seen); WBC,URINE 0-2 /HPF (0-5)
[2024-01-24 20:10] LABS: GLUCOMETER DEV NAME(LOC) 3E.I 2; GLUCOSE,POINT OF CARE 270 MG/DL (70-110)
[2024-01-24 20:49] VITALS: BP 157/103; PULSE 78; RESP 18; TEMP 98.1; O2SAT 100
[2024-01-25 05:41] LABS: GLUCOMETER DEV NAME(LOC) 3E.I 2; GLUCOSE,POINT OF CARE 200 MG/DL (70-110)
[2024-01-25 08:30] VITALS: BP 127/74; PULSE 89; RESP 18; TEMP 98; O2SAT 98
[2024-01-25 11:45] LABS: GLUCOMETER DEV NAME(LOC) 3E.I 2; GLUCOSE,POINT OF CARE 216 MG/DL (70-110)
[2024-01-25 16:55] LABS: GLUCOMETER DEV NAME(LOC) 3EX.2; GLUCOSE,POINT OF CARE 249 MG/DL (70-110)
[2024-01-25] MEDS: OLANZapine 7.5 MG TABLET PO SCH (17:05)
[2024-01-25 20:50] LABS: GLUCOMETER DEV NAME(LOC) 3E.I 2; GLUCOSE,POINT OF CARE 213 MG/DL (70-110)
[2024-01-25 21:03] VITALS: BP 153/83; PULSE 74; RESP 18; TEMP 96.6; O2SAT 97
[2024-01-26 07:01] LABS: GLUCOMETER DEV NAME(LOC) 3E.I 2; GLUCOSE,POINT OF CARE 194 MG/DL (70-110)
[2024-01-26 08:48] VITALS: BP 121/70; PULSE 88; RESP 16; TEMP 96.4; O2SAT 98
[2024-01-26 11:50] LABS: GLUCOMETER DEV NAME(LOC) 3E.I 2; GLUCOSE,POINT OF CARE 236 MG/DL (70-110)
[2024-01-26 17:30] LABS: GLUCOMETER DEV NAME(LOC) 3E.I 2; GLUCOSE,POINT OF CARE 192 MG/DL (70-110)
[2024-01-26 19:23] LABS: APPEARANCE,URINE CLEAR (CLEAR); BILIRUBIN,URINE NEGATIVE (NEGATIVE); COLOR,URINE LIGHT YELLOW (YELLOW); GLUCOSE, URINE (UA) 300-500 mg/dL (NEGATIVE); KETONES,URINE NEGATIVE (NEGATIVE); LEUKOCYTE ESTERASE ,URINE NEGATIVE (NEGATIVE); NITRATE,URINE NEGATIVE (NEGATIVE); OCCULT BLOOD,URINE NEGATIVE (NEGATIVE); PROTEIN,URINE 30-70 mg/dL (NEGATIVE); SPECIFIC GRAVITIY, URINE 1.013 (1.003-1.030); UROBILINOGEN,URINE <=1.0 mg/dL (<=1.0)
[2024-01-26 19:29] LABS: BACTERIA,URINE None Seen /HPF (None Seen); RBC,URINE 0-2 /HPF (0-2); SQUAMOUS EPITHELIAL CELL,UR Few /LPF (None Seen); WBC,URINE 0-2 /HPF (0-5)
[2024-01-26 20:40] LABS: GLUCOMETER DEV NAME(LOC) 3E.I 2; GLUCOSE,POINT OF CARE 242 MG/DL (70-110)
[2024-01-26 20:56] VITALS: BP 136/76; PULSE 75; RESP 18; O2SAT 96
[2024-01-27 06:16] LABS: GLUCOMETER DEV NAME(LOC) 3E.I 2; GLUCOSE,POINT OF CARE 222 MG/DL (70-110)
[2024-01-27 08:30] VITALS: BP 128/74; PULSE 90; RESP 18; TEMP 97.6; O2SAT 99
[2024-01-27 12:35] LABS: GLUCOMETER DEV NAME(LOC) 3E.I 2; GLUCOSE,POINT OF CARE 270 MG/DL (70-110)
[2024-01-27 15:58] LABS: CALCIUM, TOTAL 9.3 mg/dL (8.8-10.5); CREATININE 1.27 mg/dL (0.60-1.30); POTASSIUM 5.2 mmol/L (3.5-5.1)
[2024-01-27 16:36] LABS: GLUCOMETER DEV NAME(LOC) 3E.I 2; GLUCOSE,POINT OF CARE 208 MG/DL (70-110)
[2024-01-27] MEDS: SODIUM POLYSTYRENE SULFONATE 15 GM/60 ML SUSPENSION BOTTLE PO ONE (18:10)
[2024-01-27 20:01] LABS: GLUCOMETER DEV NAME(LOC) 3E.I 2; GLUCOSE,POINT OF CARE 140 MG/DL (70-110)
[2024-01-27 20:54] VITALS: BP 124/72; PULSE 87; RESP 18; TEMP 98; O2SAT 99
[2024-01-27] MEDS: ZOLPIDEM TARTRATE 10 MG TABLET PO PRN (20:58)
[2024-01-28 06:16] LABS: GLUCOMETER DEV NAME(LOC) 3EX.2; GLUCOSE,POINT OF CARE 162 MG/DL (70-110)
[2024-01-28 11:03] VITALS: BP 105/65; PULSE 91; RESP 18; O2SAT 100
[2024-01-28 11:46] LABS: GLUCOMETER DEV NAME(LOC) 3EX.2; GLUCOSE,POINT OF CARE 174 MG/DL (70-110)
[2024-01-28 17:30] LABS: GLUCOMETER DEV NAME(LOC) 3EX.2; GLUCOSE,POINT OF CARE 307 MG/DL (70-110)
[2024-01-28 20:26] LABS: GLUCOMETER DEV NAME(LOC) 3EX.2; GLUCOSE,POINT OF CARE 238 MG/DL (70-110)
[2024-01-28 21:05] VITALS: BP 130/73; PULSE 86; RESP 18; TEMP 97; O2SAT 96
[2024-01-29 06:21] LABS: GLUCOMETER DEV NAME(LOC) 3EX.2; GLUCOSE,POINT OF CARE 201 MG/DL (70-110)
[2024-01-29 09:15] VITALS: BP 118/73; PULSE 98; RESP 18; TEMP 98; O2SAT 95
[2024-01-29 11:56] LABS: GLUCOMETER DEV NAME(LOC) 3EX.2; GLUCOSE,POINT OF CARE 222 MG/DL (70-110)
[2024-01-29 17:56] LABS: GLUCOMETER DEV NAME(LOC) 3EX.2; GLUCOSE,POINT OF CARE 210 MG/DL (70-110)
[2024-01-29 20:16] LABS: GLUCOMETER DEV NAME(LOC) 3EX.2; GLUCOSE,POINT OF CARE 230 MG/DL (70-110)
[2024-01-29 20:27] VITALS: BP 140/74; PULSE 81; RESP 18; TEMP 97.6; O2SAT 98
[2024-01-30 06:30] LABS: GLUCOMETER DEV NAME(LOC) 3EX.2; GLUCOSE,POINT OF CARE 160 MG/DL (70-110)
[2024-01-30 10:03] VITALS: BP 111/73; PULSE 91; RESP 19; TEMP 97.9; O2SAT 96
[2024-01-30 12:01] LABS: GLUCOMETER DEV NAME(LOC) 3EX.2; GLUCOSE,POINT OF CARE 197 MG/DL (70-110)
[2024-01-30 16:31] LABS: GLUCOMETER DEV NAME(LOC) 3EX.2; GLUCOSE,POINT OF CARE 271 MG/DL (70-110)
[2024-01-30 20:30] LABS: GLUCOMETER DEV NAME(LOC) 3EX.2; GLUCOSE,POINT OF CARE 87 MG/DL (70-110)
[2024-01-30 21:12] VITALS: BP 121/61; PULSE 90; RESP 18; TEMP 97.5; O2SAT 96
[2024-01-31 06:00] LABS: GLUCOMETER DEV NAME(LOC) 3EX.2; GLUCOSE,POINT OF CARE 224 MG/DL (70-110)
[2024-01-31 10:29] VITALS: BP 132/64; PULSE 98; RESP 19; TEMP 97; O2SAT 97
[2024-01-31 11:35] LABS: GLUCOMETER DEV NAME(LOC) 3EX.2; GLUCOSE,POINT OF CARE 221 MG/DL (70-110)
[2024-01-31 16:36] LABS: GLUCOMETER DEV NAME(LOC) 3EX.2; GLUCOSE,POINT OF CARE 281 MG/DL (70-110)
[2024-01-31 20:24] VITALS: BP 146/77; PULSE 91; RESP 16; TEMP 98; O2SAT 95
[2024-01-31 21:35] LABS: GLUCOMETER DEV NAME(LOC) 3EX.2; GLUCOSE,POINT OF CARE 238 MG/DL (70-110)
[2024-02-01 06:20] LABS: GLUCOMETER DEV NAME(LOC) 3EX.2; GLUCOSE,POINT OF CARE 167 MG/DL (70-110)
[2024-02-01 10:06] VITALS: BP 131/71; PULSE 82; RESP 18; TEMP 97.9; O2SAT 99
[2024-02-01 11:26] LABS: GLUCOMETER DEV NAME(LOC) 3EX.2; GLUCOSE,POINT OF CARE 212 MG/DL (70-110)
[2024-02-01 17:21] LABS: GLUCOMETER DEV NAME(LOC) 3EX.2; GLUCOSE,POINT OF CARE 284 MG/DL (70-110)
[2024-02-01 21:18] VITALS: BP 152/80; PULSE 85; RESP 19; TEMP 97.3; O2SAT 98
[2024-02-01 21:30] LABS: GLUCOMETER DEV NAME(LOC) 3EX.2; GLUCOSE,POINT OF CARE 274 MG/DL (70-110)
[2024-02-02 06:06] LABS: GLUCOMETER DEV NAME(LOC) 3E.I 2; GLUCOSE,POINT OF CARE 225 MG/DL (70-110)
[2024-02-02 08:39] LABS: CALCIUM, TOTAL 8.8 mg/dL (8.8-10.5); CREATININE 1.29 mg/dL (0.60-1.30); POTASSIUM 5.1 mmol/L (3.5-5.1)
[2024-02-02 08:59] VITALS: BP 121/74; PULSE 87; RESP 18; TEMP 97.6; O2SAT 96
[2024-02-02 12:11] LABS: GLUCOMETER DEV NAME(LOC) 3EX.2; GLUCOSE,POINT OF CARE 202 MG/DL (70-110)
[2024-02-02 17:01] LABS: GLUCOMETER DEV NAME(LOC) 3EX.2; GLUCOSE,POINT OF CARE 218 MG/DL (70-110)
[2024-02-02 20:55] VITALS: BP 142/74; PULSE 85; RESP 18; TEMP 97.7; O2SAT 95
[2024-02-02 21:51] LABS: GLUCOMETER DEV NAME(LOC) 3EX.2; GLUCOSE,POINT OF CARE 267 MG/DL (70-110)
[2024-02-03 06:21] LABS: GLUCOMETER DEV NAME(LOC) 3EX.2; GLUCOSE,POINT OF CARE 203 MG/DL (70-110)
[2024-02-03 09:00] VITALS: BP 153/81; PULSE 96; RESP 16; TEMP 98.1; O2SAT 97
[2024-02-03 11:51] LABS: GLUCOMETER DEV NAME(LOC) 3EX.2; GLUCOSE,POINT OF CARE 202 MG/DL (70-110)
[2024-02-03 16:50] LABS: GLUCOMETER DEV NAME(LOC) 3EX.2; GLUCOSE,POINT OF CARE 218 MG/DL (70-110)
[2024-02-03 20:16] LABS: GLUCOMETER DEV NAME(LOC) 3EX.2; GLUCOSE,POINT OF CARE 303 MG/DL (70-110)
[2024-02-03 21:23] VITALS: BP 158/69; PULSE 83; RESP 16; TEMP 97.5; O2SAT 96
[2024-02-04 05:50] LABS: GLUCOMETER DEV NAME(LOC) 3E.I 2; GLUCOSE,POINT OF CARE 167 MG/DL (70-110)
[2024-02-04 08:00] VITALS: BP 152/77; PULSE 85; RESP 16; TEMP 97.8; O2SAT 98
[2024-02-04 11:41] LABS: GLUCOMETER DEV NAME(LOC) 3EX.2; GLUCOSE,POINT OF CARE 334 MG/DL (70-110)
[2024-02-04 16:45] LABS: GLUCOMETER DEV NAME(LOC) 3EX.2; GLUCOSE,POINT OF CARE 361 MG/DL (70-110)
[2024-02-04 19:55] LABS: GLUCOMETER DEV NAME(LOC) 3E.I 2; GLUCOSE,POINT OF CARE 227 MG/DL (70-110)
[2024-02-04 20:00] VITALS: BP 142/73; PULSE 79; RESP 19; TEMP 97.7; O2SAT 97
[2024-02-05 06:31] LABS: GLUCOMETER DEV NAME(LOC) 3E.I 2; GLUCOSE,POINT OF CARE 223 MG/DL (70-110)
[2024-02-05 10:55] VITALS: BP 134/96; PULSE 98; RESP 17; TEMP 97.4; O2SAT 96
[2024-02-05 11:55] LABS: GLUCOMETER DEV NAME(LOC) 3E.I 2; GLUCOSE,POINT OF CARE 221 MG/DL (70-110)
[2024-02-05 16:56] LABS: GLUCOMETER DEV NAME(LOC) 3E.I 2; GLUCOSE,POINT OF CARE 153 MG/DL (70-110)
[2024-02-05 20:00] LABS: GLUCOMETER DEV NAME(LOC) 3E.I 2; GLUCOSE,POINT OF CARE 266 MG/DL (70-110)
[2024-02-05 20:58] VITALS: RESP 18
[2024-02-06 06:06] LABS: GLUCOMETER DEV NAME(LOC) 3EX.2; GLUCOSE,POINT OF CARE 204 MG/DL (70-110)
[2024-02-06 12:10] LABS: GLUCOMETER DEV NAME(LOC) 3EX.2; GLUCOSE,POINT OF CARE 193 MG/DL (70-110)
[2024-02-06 14:01] VITALS: BP 119/70; PULSE 88; RESP 18; TEMP 97.9; O2SAT 96
[2024-02-06 17:35] LABS: GLUCOMETER DEV NAME(LOC) 3E.I 2; GLUCOSE,POINT OF CARE 285 MG/DL (70-110)
[2024-02-06 20:10] LABS: GLUCOMETER DEV NAME(LOC) 3EX.2; GLUCOSE,POINT OF CARE 204 MG/DL (70-110)
[2024-02-06 21:00] VITALS: BP 120/81; PULSE 85; RESP 18; TEMP 97.9
[2024-02-07 05:36] LABS: GLUCOMETER DEV NAME(LOC) 3EX.2; GLUCOSE,POINT OF CARE 224 MG/DL (70-110)
[2024-02-07 07:49] LABS: BASOPHILS % (AUTO) 0.6 % (0.0-2.0); EOSINOPHILS % (AUTO) 1.4 % (1.0-6.0); HEMATOCRIT 35.8 % (36-46); HEMOGLOBIN 12.1 g/dL (12.0-16.0); LYMPHOCYTES # (AUTO) 2.7 K/uL (1.0-4.8); LYMPHOCYTES % (AUTO) 28.7 % (22.0-44.0); MEAN CORPUSCULAR HEMOGLOBIN 28.2 pg (26.0-34.0); MEAN CORPUSCULAR HGB CONC 33.8 G/dL (31.0-37.0); MEAN CORPUSCULAR VOLUME 84 fL (80-100); MONOCYTES # (AUTO) 0.7 K/uL (0.1-1.0); MONOCYTES % (AUTO) 7.1 % (2.0-9.0); NEUTROPHILS # (AUTO) 5.9 K/uL (1.8-7.7); NEUTROPHILS % (AUTO) 62.2 % (40.0-70.0); PLATELET COUNT (AUTO) 207 K/uL (150-450); RED BLOOD CELL COUNT(AUTO) 4.29 MIL/uL (4.00-5.20); RED CELL DISTRIBUTION WIDTH 13.3 % (11.5-14.5); WHITE BLOOD COUNT (AUTO) 9.5 K/uL (4.5-11.0)
[2024-02-07 08:20] LABS: CALCIUM, TOTAL 9.4 mg/dL (8.8-10.5); CREATININE 1.22 mg/dL (0.60-1.30); POTASSIUM 4.7 mmol/L (3.5-5.1)
[2024-02-07 09:30] VITALS: BP 130/77; PULSE 93; RESP 16; TEMP 97.4; O2SAT 98
[2024-02-07 11:41] LABS: GLUCOMETER DEV NAME(LOC) 3E.I 2; GLUCOSE,POINT OF CARE 216 MG/DL (70-110)
[2024-02-07 16:30] LABS: GLUCOMETER DEV NAME(LOC) 3E.I 2; GLUCOSE,POINT OF CARE 277 MG/DL (70-110)
[2024-02-07 20:42] VITALS: BP 133/76; PULSE 81; RESP 18; TEMP 97.9; O2SAT 99
[2024-02-07 21:26] LABS: GLUCOMETER DEV NAME(LOC) 3EX.2; GLUCOSE,POINT OF CARE 224 MG/DL (70-110)
[2024-02-08 09:23] VITALS: BP 131/76; PULSE 96; RESP 18; TEMP 97.5; O2SAT 99
[2024-02-08 12:20] LABS: GLUCOMETER DEV NAME(LOC) 3EX.2; GLUCOSE,POINT OF CARE 274 MG/DL (70-110)
[2024-02-08 16:55] LABS: GLUCOMETER DEV NAME(LOC) 3EX.2; GLUCOSE,POINT OF CARE 216 MG/DL (70-110)
[2024-02-08 20:26] LABS: GLUCOMETER DEV NAME(LOC) 3EX.2; GLUCOSE,POINT OF CARE 218 MG/DL (70-110)
[2024-02-08 20:55] VITALS: BP 129/79; PULSE 78; RESP 18; TEMP 98.4; O2SAT 97
[2024-02-09 05:51] LABS: GLUCOMETER DEV NAME(LOC) 3EX.2; GLUCOSE,POINT OF CARE 221 MG/DL (70-110)
[2024-02-09 09:00] VITALS: BP 135/74; PULSE 89; RESP 18; TEMP 97.7; O2SAT 97
[2024-02-09] MEDS ORDERED: DIVA-112 PO ×2 (10:48→13:40)
[2024-02-09] MEDS ORDERED: OLAN7.5T22 PO ×2 (10:49→13:40)
[2024-02-09] MEDS ORDERED: [UNRECOGNIZED DRUG - CODE] PO (10:59)
[2024-02-09] MEDS ORDERED: SIMV-259 PO (11:33)
[2024-02-09 11:46] LABS: GLUCOMETER DEV NAME(LOC) 3EX.2; GLUCOSE,POINT OF CARE 250 MG/DL (70-110)
[2024-02-09] MEDS ORDERED: TRIH2TAB3 PO (13:40)
[2024-02-09 16:46] LABS: GLUCOMETER DEV NAME(LOC) 3EX.2; GLUCOSE,POINT OF CARE 263 MG/DL (70-110)
== END 2024-02-09 16:45 | disposition home or self-care (01) | DRG 885 ==
LOC: 3EX 21:36
PROVIDERS: ADMIT Psychiatry & Neurology Child & Adolescent Psychiatry; ATTEND Psychiatry & Neurology Child & Adolescent Psychiatry
PROC: GZ56ZZZ Individual Psychotherapy, Supportive (ICD-10-PCS; 2024-01-06)
PROC: GZHZZZZ Group Psychotherapy (ICD-10-PCS; principal; 2024-01-10)
PROC: GZ52ZZZ Individual Psychotherapy, Cognitive (ICD-10-PCS; 2024-01-11)
DX: F25.0 Schizoaffective disorder, bipolar type (principal); N17.9 Acute kidney failure, unspecified; E87.1 Hypo-osmolality and hyponatremia; F22 Delusional disorders; I10 Essential (primary) hypertension; E11.9 Type 2 diabetes mellitus without complications; F32.A Depression, unspecified; E78.5 Hyperlipidemia, unspecified; E87.5 Hyperkalemia; G47.00 Insomnia, unspecified; Z79.82 Long term (current) use of aspirin; Z79.4 Long term (current) use of insulin; Z79.899 Other long term (current) drug therapy
CPT/HCPCS: 80048; 80053; 80061; 80164; 81001; 81003; 82962; 83036; 84132; 84443; 85025; 87081; G0378; J1815